=== PATIENT | female | born 1940 | race Caucasian/White ===

== ENCOUNTER 2023-05-05 15:23 | Emergency (ER) | payer MEDICARE, SELFPAY ==
--- NOTE | ~2023-05-05 | XR_ITS ---
EXAMINATION: PORTABLE CHEST 1 VIEW CLINICAL INFORMATION: Lower extremity swelling. COMPARISON: 10/13/2016. TECHNIQUE: Portable frontal view of the chest was obtained. FINDINGS: Lungs well-expanded with chronic appearing coarsened reticular markings. I do not appreciate any superimposed focal infiltrate, overt edema, pneumothorax, or effusion. Cardiac silhouette within normal limits for size. Dual-lead pacemaker is noted with lead tips overlying expected right atrium and right ventricle. TAVR stent is in place with vascular calcification seen in the aorta. Degenerative changes in the shoulders XR/XR chest 1V IMPRESSION: Chronic appearing and postoperative changes as described. I do not appreciate any acute superimposed process.
[2023-05-05 15:37] VITALS: BP 172/78; PULSE 81; O2SAT 98
[2023-05-05 16:00] VITALS: BP 134/80; PULSE 70; RESP 14; TEMP 36.7; O2SAT 97; BMI 22.9
--- NOTE | 2023-05-05 16:58 | ECG_ITS ---
Test Reason : BILATERAL LEG SWELLING Blood Pressure : / mmHG Vent. Rate : 066 BPM Atrial Rate : 066 BPM P-R Int : 194 ms QRS Dur : 094 ms QT Int : 478 ms P-R-T Axes : 070 -33 085 degrees QTc Int : 501 ms Normal sinus rhythm Left axis deviation Minimal voltage criteria for LVH, may be normal variant ( [place] product ) Septal infarct (cited on or before 13-OCT-2016) Abnormal ECG When compared with ECG of 13-OCT-2016 14:24, Premature ventricular complexes are no longer Present QT has lengthened Referred By: Cheng Aceves Electronically Signed By:SULMA RACHEL
--- NOTE | 2023-05-05 16:59 | ED_ITS ---
HPI - Extremity Problem General Chief complaint: Extremity Problem Stated complaint: WEAKNESS, EDEMA IN LEGS Time Seen by Provider: 05/05/23 16:46 Source: patient, family and EMS Mode of arrival: EMS Limitations: no limitations History of Present Illness HPI Narrative: 82-year-old female came in for evaluation of bilateral swelling of lower extremity notice since last night, patient is known to have CHF, patient was using Lasix but was taken off Lasix by her PCP about 3 months ago, patient otherwise declined chest pain, no SOB, no PND. Related Data Previous Rx's Medication Instructions Recorded furosemide 20 mg tablet (Lasix) 20 mg PO DAILY #10 tabs 05/05/23 potassium gluconate 500 mg (83 mg) 500 mg PO DAILY #10 tabs 05/05/23 tablet Allergies Allergy/AdvReac Type Severity Reaction Status Date / Time Penicillins [PCN] Allergy Mild RASH Verified 05/05/23 16:11 Sulfa (Sulfonamide Allergy Mild RASH Verified 05/05/23 16:11 Antibiotics) [SULFA (SULFONAMIDE ANTIBIOTICS)] codeine [CODEINE] AdvReac Mild NAUSEA & Verified 05/05/23 16:11 VOMITING Review of Systems 2 Review of Systems: All other systems are reviewed and are negative Constitutional: Reports as per HPI and Reports no additional constitutional complaints Eyes: Reports as per HPI and Reports no additional eye complaints Reports system reviewed and no additional complaints, except as documented Cardiovascular: Reports as per HPI and Reports no additional cardiovascular complaints Respiratory: Reports as per HPI and Reports no additional respiratory complaints Gastrointestinal: Reports as per HPI and Reports no additional gastrointestinal complaints Genitourinary: Reports no additional female genitourinary complaints Musculoskeletal: Reports no additional musculoskeletal complaints Skin/Breast: Reports system reviewed and no additional complaints, except as docu Psychiatric: Reports no additional psychiatric complaints Endocrine: Reports no additional endocrine complaints Hematologic/Lymphatic: Reports no additional hematologic/lymphatic complaints Allergic/Immunologic: Reports no additional allergic/immunologic complaints Reports system reviewed and no additional complaints, except as documented and Reports Abnormal speech present [facility] Social History Social History Smoked in Last 30 Days: No Advance Directives: No Advance Directives Information Provided: No Physical Exam 2 Vital Signs: Vital Signs: Last Vital Signs Temp 98.1 F 05/05/23 19:50 Pulse 63 05/05/23 19:50 Resp 17 05/05/23 19:50 BP 119/58 L 05/05/23 19:50 Pulse Ox 99 05/05/23 19:50 O2 Del Method Room Air 05/05/23 19:50 O2 Flow Rate 3 05/05/23 19:19 Oxygen Flow Rate 3 05/05/23 16:00 BMI result Body Mass Index 22.9 Vital signs have been reviewed and appear to be correct. Blood pressure elevated. Heart rate normal. Respiratory rate normal. Temperature normal. Oxygen saturation normal. Appearance: Alert. Oriented X3. No acute distress. Head: Normal external exam. Normocephalic. Atraumatic. No Wiley signs noted. No raccoon eyes noted Eyes: PERRLA. EOMI. Conjunctiva and sclera normal. Eyelids normal. ENT: TM's Normal. Pharynx normal. Uvula midline. Moist mucous membranes. No trismus noted. No drooling noted. No muffled voice noted. Neck: Normal inspection. Neck supple. FROM. No adenopathy. Thyroid Normal. No meningeal signs. No neck mass noted. CVS: Normal heart rate and rhythm. Heart sound normal. No murmurs noted. Pulses normal throughout. Respiratory: No respiratory distress. Painless inspiration. Breath sounds normal. No wheezes/rales/rhonchi noted. Chest nontender. No accessory muscle usage noted or decreased air movement noted. Abdomen: Soft and nontender. Bowel sounds normal in all 4 quadrants. No distention noted. No organomegaly noted. No visible injury noted. Back: No CVA tenderness. Full range of motion noted. Skin: Skin warm and dry. Normal skin color. Normal skin turgor. No rashes/lesions/lacerations noted. Extremities: +2 lower extremity edema. Extremities exhibit normal range of motion. Extremities nontender. Neuro: Oriented X 3. Cranial nerve exam: II-XII are grossly intact No motor deficit. No sensory deficit. Reflexes normal. Course Reevaluation(s) Reevaluation #1: Bilateral leg edema patient was on Lasix that was discontinued by her PCP likely because of hypokalemia, will discharge the patient on Lasix and supplemental potassium. Time: 21:58 Medications Administered Discontinued Medications Generic Name Dose Route Start Last Admin Trade Name Freq PRN Reason Stop Dose Admin Furosemide 20 mg 05/05/23 16:57 05/05/23 17:42 Furosemide 20 Mg/2 Ml Vial IVPUSH 05/05/23 16:58 20 mg ONCE ONE Administration Protocol Potassium Chloride 10 meq in 100 mls @ 100 mls/hr 05/05/23 18:23 05/05/23 20:26 Potassium Chloride/H20 IV 05/05/23 19:22 Infused ONCE ONE Infusion Potassium Chloride 40 meq 05/05/23 18:23 05/05/23 19:17 Potassium Chloride Packet 20 Meq Packet PO 05/05/23 18:24 40 meq ONCE ONE Administration Medical Decision Making Differential Diagnosis Differential Diagnoses: The differential diagnosis associated with the presentation includes (Electrolyte abnormality, CHF, severe anemia, dehydration, UTI.) Admission/Observation Consideration of admission/observation: Escalation of care including admission/observation considered Lab Data MDM Lab Attestation statement: I reviewed the patient's lab results. 05/05/23 17:48 05/05/23 17:48 Labs: Lab Results 05/05/23 Range/Units 17:48 WBC 9.6 (4.8-10.8) X10*3/uL RBC 4.14 L (4.20-5.50) X10*6/uL Hgb 11.6 L (12.0-16.0) g/dl Hct 35.5 L (37.0-47.0) % MCV 85.7 (80.0-98.0) fL MCH 28.0 (27.0-33.0) pg MCHC 32.7 (31.0-35.0) g/dl RDW 13.6 (11.0-16.0) % Plt Count 134 L (160-400) X10*3/uL MPV 9.6 (9.4-12.3) fL Immature Gran % (Auto) 0.4 (0.0-0.4) % Neut % (Auto) 71.3 (45-73) % Lymph % (Auto) 19.4 L (20-40) % [place] % (Auto) 7.3 (2-11) % Eos % (Auto) 1.0 (0-4) % Baso % (Auto) 0.6 (0-2) % Lymph # (Auto) 1.9 (1.2-4.9) X10*3/uL [place] # (Auto) 0.7 (0.1-1.2) X10*3/uL Eos # (Auto) 0.1 (0.0-0.4) X10*3/uL Baso # (Auto) 0.1 (0.0-0.2) X10*3/uL Abs Immat Gran (auto) 0.04 H (0.00-0.03) X10*3/uL Absolute Neuts (auto) 6.8 (2.0-8.3) x10*3/uL Absolute Nucleated RBC 0.000 (0.0-0.012) X10*3/uL Nucleated RBC % (auto) 0.0 (0.0-0.2) /100WBC Sodium 141 (135-145) mmol/L Potassium 2.7 L (3.3-5.1) mmol/L Chloride 97 (96-108) mmol/L Carbon Dioxide 31 H (22-29) mmol/L Anion Gap 16 (12-20) BUN 20 H (9-16) mg/dL Creatinine 1.13 (0.5-1.4) mg/dL Estim Creat Clear Calc 31.4 Estimated GFR 46 Random Glucose 136 H (60-115) mg/dL Calcium 9.2 (8.4-10.2) mg/dL Total Bilirubin 1.0 (0.0-1.0) mg/dL Direct Bilirubin 0.3 (0.0-0.5) mg/dL AST 32 H (5-31) U/L ALT 18 (0-31) U/L Alkaline Phosphatase 74 (39-117) U/L Troponin I High Sens 7.9 (<3.5-17.0) ng/L B-Natriuretic Peptide 81 (<100) pg/mL Total Protein 7.1 (6.5-8.0) g/dL Albumin 4.0 (3.5-5.0) g/dL Lipase 32 (8-78) U/L Urine Color Yellow Urine Appearance Clear Urine pH 7.0 (5.0-9.0) Ur Specific [place] 1.010 (1.005-1.025) Urine Protein Negative (Neg-Trace) mg/dL Urine Glucose (UA) Negative (Negative) mg/dL Urine Ketones Negative (Negative) mg/dL Urine Blood Small (1+) H (Negative) Urine Nitrite Negative (Negative) Ur Leukocyte Esterase Trace H (Negative) Urine RBC 11-20 H (0-2) /HPF Urine WBC 0-5 (0-5) /HPF Ur Squamous Epith Cells 0-2 (0-2) /HPF Calcium Oxalate Crystal Present Other Crystals Present Urine Bacteria None Seen (None Seen) Hyaline Casts 0-2 (0-2) /LPF Independent Interpretation I performed an independent interpretation of an: Plain X-Ray (Chest:Chronic appearing and postoperative changes as described. I do not appreciate any acute superimposed process. ) Radiology Impression Discussion of test interpretation with radiology: I have reviewed the radiologist's reading. Discharge Plan Discharge Clinical Impression: Lower extremity edema, Hypokalemia Patient Disposition: Home, Self-Care Instructions: Leg Edema (ED) Additional Instructions: Leg elevation, take the water pills as prescribed, make sure to eat 1 banana a day and take the potassium pills. Follow-up with your PCP. Prescriptions: New furosemide [Lasix] 20 mg tablet 20 mg PO DAILY Qty: 10 0RF potassium gluconate 500 mg (83 mg) tablet 500 mg PO DAILY Qty: 10 0RF
[2023-05-05] MEDS: Furosemide 20 MG/2 ML VIAL IVPUSH (17:42)
[2023-05-05 17:53] LABS: MANUAL DIFF FLAG NO
[2023-05-05 17:54] LABS: Basophils Absolute Auto 0.1 X10*3/uL (0.0-0.2); Basophils Percent Auto 0.6 % (0-2); Eosinophils Absolute Auto 0.1 X10*3/uL (0.0-0.4); Hematocrit 35.5 % (37.0-47.0); Hemoglobin 11.6 g/dl (12.0-16.0); Imm Gran Abs Auto 0.04 X10*3/uL (0.00-0.03); Imm Gran Pct Auto 0.4 % (0.0-0.4); Lymphocytes Absolute Auto 1.9 X10*3/uL (1.2-4.9); Lymphocytes Percent Auto 19.4 % (20-40); Mean Corpuscular HGB Conc 32.7 g/dl (31.0-35.0); Mean Corpuscular Volume 85.7 fL (80.0-98.0); Mean Platelet Volume 9.6 fL (9.4-12.3); Monocytes Absolute Auto 0.7 X10*3/uL (0.1-1.2); Monocytes Percent Auto 7.3 % (2-11); Neutrophils Absolute Auto 6.8 x10*3/uL (2.0-8.3); Neutrophils Percent Auto 71.3 % (45-73); Platelet Count 134 X10*3/uL (160-400); Red Blood Count 4.14 X10*6/uL (4.20-5.50); Red Cell Distribution Width 13.6 % (11.0-16.0); White Blood Count 9.6 X10*3/uL (4.8-10.8)
[2023-05-05 17:56] LABS: Appearance Urine Clear; Color Urine Yellow; Glucose Urine UA Negative (Negative); Leukocyte Esterase Urine Trace (Negative); Nitrite Urine Negative (Negative); UMIC TRIGGER UACC YES; Urine Blood Small (1+) (Negative); Urine Ketones Negative (Negative); Urine Protein Negative (Neg-Trace)
[2023-05-05 18:09] LABS: Bacteria Urine None Seen (None Seen); Calcium Oxalate Crystals Urine Present; Hyaline Casts Urine 0-2 /LPF (0-2); Other Crystals Urine Present; Squamous Epithelial Cell Urine 0-2 /HPF (0-2); WBC Urine 0-5 /HPF (0-5)
[2023-05-05 18:10] LABS: Alanine Aminotransferase 18 U/L (0-31); Alkaline Phosphatase 74 U/L (39-117); Anion Gap 16 (12-20); Aspartate Amino Transferase 32 U/L (5-31); Bilirubin Direct 0.3 mg/dL (0.0-0.5); Blood Urea Nitrogen 20 mg/dL (9-16); Calcium 9.2 mg/dL (8.4-10.2); Carbon Dioxide 31 mmol/L (22-29); Chloride 97 mmol/L (96-108); Creatinine Clr Calc Pharmacy 31.4; Estimated Glomerular Filt Rate 46; Glucose Random 136 mg/dL (60-115); Lipase 32 U/L (8-78); Potassium 2.7 mmol/L (3.3-5.1); Sodium 141 mmol/L (135-145); Total Protein 7.1 g/dL (6.5-8.0)
[2023-05-05 18:13] LABS: B Type Natriuretic Peptide 81 pg/mL (<100)
[2023-05-05 18:17] LABS: Troponin-I High Sensitivity 7.9 ng/L (<3.5-17.0)
--- NOTE | 2023-05-05 19:16 | PC.NURSE ---
ASSUMED CARE OF PT
[2023-05-05] MEDS: Potassium Chloride/H20 10 MEQ/100 ML PIGGYBACK 100 MEQ IV (19:17)
[2023-05-05] MEDS: Potassium Chloride Packet 20 MEQ PACKET 40 MEQ PO (19:17)
[2023-05-05 19:19] VITALS: BP 125/69; PULSE 67; RESP 19; TEMP 36.6; O2SAT 96
[2023-05-05 19:50] VITALS: BP 119/58; PULSE 63; RESP 17; TEMP 36.7; O2SAT 99
--- NOTE | 2023-05-05 19:53 | PC.NURSE ---
daybook nurse Stephanie for contact- [phone]
--- NOTE | 2023-05-05 22:04 | PC.NURSE ---
nurse to nurse report given to shyla alcantar [facility]
== END 2023-05-06 00:42 | disposition home or self-care (01) ==
PROVIDERS: Emergency Provider Emergency Medicine
DX: R60.0 Localized edema (principal); R94.31 Abnormal electrocardiogram [ECG] [EKG]; R06.02 Shortness of breath; Z79.899 Other long term (current) drug therapy
CPT/HCPCS: 36415; 71045; 80048; 80076; 81001; 83690; 83880; 84484; 85025; 93005; 96365; 96375; 99284; 99285; J1940; J3480

== ENCOUNTER → 2023-05-05 16:58 | Outpatient (BNV) | payer MEDICARE, SELFPAY | PROVIDERS: Emergency Provider Emergency Medicine; Visit Provider Internal Medicine | DX: R94.31 Abnormal electrocardiogram [ECG] [EKG] (principal) | CPT/HCPCS: 93010 ==

== ENCOUNTER 2023-08-19 19:08 | Emergency (ER) | payer MEDICARE, SELFPAY ==
[2023-08-19 19:14] VITALS: BP 170/85; PULSE 91; O2SAT 96
--- NOTE | 2023-08-19 19:41 | ECG_ITS ---
Test Reason : PACEMAKER/MISSED FIRED Blood Pressure : / mmHG Vent. Rate : 074 BPM Atrial Rate : 074 BPM P-R Int : 174 ms QRS Dur : 096 ms QT Int : 430 ms P-R-T Axes : 011 -42 075 degrees QTc Int : 477 ms Normal sinus rhythm Left axis deviation Minimal voltage criteria for LVH, may be normal variant ( [place] product ) Abnormal ECG When compared with ECG of 05-MAY-2023 17:37, No significant change was found Referred By: Generic ED Physician Electronically Signed By:SULMA RACHEL
[2023-08-19 19:45] VITALS: BP 146/67; PULSE 75; RESP 15; TEMP 36.4; O2SAT 92; BMI 26.9
[2023-08-19 19:51] VITALS: BP 146/50; PULSE 74; RESP 14; TEMP 36.4; O2SAT 92
[2023-08-19 19:56] LABS: MANUAL DIFF FLAG NO
[2023-08-19 19:59] LABS: Basophils Absolute Auto 0.1 X10*3/uL (0.0-0.2); Basophils Percent Auto 0.6 % (0-2); Eosinophils Absolute Auto 0.1 X10*3/uL (0.0-0.4); Eosinophils Percent Auto 1.3 % (0-4); Hematocrit 39.7 % (37.0-47.0); Hemoglobin 13.1 g/dl (12.0-16.0); Imm Gran Abs Auto 0.02 X10*3/uL (0.00-0.03); Imm Gran Pct Auto 0.2 % (0.0-0.4); Lymphocytes Absolute Auto 2.5 X10*3/uL (1.2-4.9); Lymphocytes Percent Auto 27.2 % (20-40); Monocytes Absolute Auto 0.8 X10*3/uL (0.1-1.2); Monocytes Percent Auto 8.4 % (2-11); Neutrophils Absolute Auto 5.6 x10*3/uL (2.0-8.3); Neutrophils Percent Auto 62.3 % (45-73); Platelet Count 144 X10*3/uL (160-400); Red Blood Count 4.51 X10*6/uL (4.20-5.50); Red Cell Distribution Width 13.1 % (11.0-16.0)
[2023-08-19 20:11] LABS: Alanine Aminotransferase 11 U/L (0-31); Albumin Level 4.2 g/dL (3.5-5.0); Alkaline Phosphatase 67 U/L (39-117); Anion Gap 16 (12-20); Aspartate Amino Transferase 23 U/L (5-31); Bilirubin Total 1.3 mg/dL (0.0-1.0); Blood Urea Nitrogen 27 mg/dL (9-16); Calcium 9.5 mg/dL (8.4-10.2); Carbon Dioxide 29 mmol/L (22-29); Chloride 97 mmol/L (96-108); Creatinine Clr Calc Pharmacy 35.9; Estimated Glomerular Filt Rate 48; Glucose Random 135 mg/dL (60-115); Potassium 3.4 mmol/L (3.3-5.1); Sodium 139 mmol/L (135-145); Total Protein 7.5 g/dL (6.5-8.0)
--- OUTSIDE RECORDS SUMMARY | 2023-08-19 20:17 | XMS_ITS | Continuity of Care Document ---
Author Organization [facility] [place] Address [address] [place] [id number]- Care Team Providers Care After School Tutor Name Role Phone Keke Nguyen MD Primary Care Physician [phone] [place] [facility] [place](s[place] 04/28/20 - 05/28/20 [facility] [address] [place] [id number] Attending Physician: AdmtrJessa Admitting Physician: Admtr, Ar8 Referring Physician: Admtr, Ar8 Allergies, Adverse Reactions, Alerts Substance Reaction Severity Status codeine hives Active penicillin hives Allergy to penicillin Aspirin allergy Codeine allergy Allergy to sulfa drugs Active aspirin stomach pain Active sulfa drugs 1 migraines Active 1Patient tolerates furosemide Medications acetaminophen 325 mg oral tablet 650 mg, By Mouth, Every 6 hours, may take OTC, Refills 0, Maintenance, 03/09/20 9:17:00 EST Start Date: 03/09/20 Status: Ordered atorvastatin 40 mg oral tablet 1 tablet = 40 mg, By Mouth, Daily, 0 Refills, Maintenance, 02/02/20 8:09:00 EDT Start Date: 02/02/20 Status: Ordered furosemide 40 mg oral tablet 40 mg, 1, tablet, By Mouth, Daily, # 30 tablet, Refills 0, Tot. Refills 0, Maintenance, 03/15/20 14:35:00 EST, Route to Pharmacy Electronically, [facility]/pharmacy #[id number], 158, cm, 03/15/20 13:59:00 EST, Height, 75, kg, 03/11/20 0:01:00 EST, Dry Weight Start Date: 03/15/20 Status: Ordered Levoxyl 0.088 mg oral tablet 1 tablet = 88 mcg, By Mouth, Daily, 1 1/2 tab on Sunday, 0 Refills, Maintenance, 02/02/20 8:09:00 EDT Start Date: 02/02/20 Status: Ordered metoprolol 25 mg oral tablet 25 mg, 1, tablet, By Mouth, 3 times a day, Use Metoprolol Tartrate, # 90 tablet, Refills 0, Tot. Refills 0, Maintenance, 05/07/20 17:36:00 EST, Route to Pharmacy Electronically, [facility]/pharmacy #[id number], Partial fill upon patient request if the prescription... Start Date: 05/07/20 Stop Date: 06/06/20 Status: Ordered MiraLax Powder 1 pack/packet = 17 Gm, By Mouth, Daily, may take OTC prn, 0 Refills, Maintenance, 03/09/20 9:19:00 EST, Powder Start Date: 03/09/20 Status: Ordered Mirapex 0.25 mg oral tablet 1 tablet = 0.25 mg, By Mouth, Daily at bedtime, 0 Refills Start Date: 04/05/09 Status: Ordered Plavix 75 mg oral tablet 75 mg, 1, tablet, By Mouth, Daily, # 30 tablet, Refills 0, Maintenance, 05/06/20 7:56:00 EST, Partial fill upon patient request if the prescription is for a schedule II opioid drug. Start Date: 05/06/20 Status: Ordered Symbicort 80mcg/4.5mcg Inhaler 2 puffs, Inhalation, 2 times a day, 0 Refills Start Date: 04/05/09 Stop Date: 05/04/09 Status: Ordered Ventolin HFA 108 mcg/inh inhalation aerosol with adapter 1 puffs, Inhalation, 4 times a day, PRN for wheezing, # 18 Gm, 0 Refills, Maintenance, 03/08/20 6:50:00 EST, Aerosol Start Date: 03/08/20 Status: Ordered Vitamin C 500 mg oral tablet 1 tablet = 500 mg, By Mouth, Daily, 0 Refills, Maintenance, 02/02/20 8:11:00 EDT Start Date: 02/02/20 Status: Ordered Vitamin D3 1000 intl units oral capsule By Mouth, Daily, 0 Refills, Maintenance, 02/02/20 8:11:00 EDT Start Date: 02/02/20 Status: Ordered
--- OUTSIDE RECORDS SUMMARY | 2023-08-19 20:17 | XMS_ITS | Continuity of Care Document ---
Author Organization [facility] Address [address] [place] [address]- Care Team Providers Care Client Solutions Specialist Name Role Phone Keke [place] MD Primary Care Physician Encounter [facility] [place] Date(s): 08/09/20 - 09/08/20 [facility] [address] [place] [address]- Allergies, Adverse Reactions, Alerts Substance Reaction Severity Status codeine hives Active penicillin hives Allergy to penicillin Aspirin allergy Codeine allergy Allergy to sulfa drugs Active aspirin stomach pain Active sulfa drugs 1 migraines Active Mushrooms hives Active 1Patient tolerates furosemide Immunizations Given and Recorded Vaccine Date Status Refusal Reason pneumococcal 13-valent vaccine 1 06/03/20 Given influenza virus vaccine, inactivated 06/03/20 Give n 1Early/Late Reason: Early/Late Reason: Med Not Available Medications acetaminophen 325 mg oral tablet 650 mg, By Mouth, Every 6 hours, may take OTC, Refills 0, Maintenance, 03/09/20 9:17:00 EST Start Date: 03/09/20 Status: Ordered amLODIPine 2.5 mg oral tablet 5 mg, 2, tablet, By Mouth, Daily, # 60 tablet, Refills 0, Tot. Refills 0, Maintenance, 06/04/20 13:45:00 EST, Route to Pharmacy Electronically, [facility]/pharmacy #[id number], Partial fill upon patient request if the prescription is for a schedule II opioid drug.... Start Date: 06/04/20 Status: Ordered atorvastatin 40 mg oral tablet 1 tablet = 40 mg, By Mouth, Daily, 0 Refills, Maintenance, 02/02/20 8:09:00 EDT Start Date: 02/02/20 Status: Ordered furosemide 20 mg oral tablet 60 mg, 3, tablet, By Mouth, Daily, # 90 tablet, Refills 0, Tot. Refills 0, Maintenance, 06/04/20 13:44:00 EST, Route to Pharmacy Electronically, [facility]/pharmacy #[id number], Partial fill upon patient request if the prescription is for a schedule II opioid drug... Start Date: 06/04/20 Status: Ordered Levoxyl 0.088 mg oral tablet [...] 05/07/20 17:36:00 EST, Route to Pharmacy Electronically, [facility]/pharmacy #[id number], Partial fill upon patient request if the [...]
--- OUTSIDE RECORDS SUMMARY | 2023-08-19 20:17 | XMS_ITS | Continuity of Care Document ---
Author Organization [facility] Address [address] [place] [address]- Care Team Providers Care Director Of Customer Service Name Role Phone Keke Nguyen MD Primary Care Physician [phone] [place] [facility] [place](s): 02/02/20 - 04/21/20 [facility] [address] [place] [address]- Attending Physician: Nori Silva NP Admitting Physician: Nori Silva NP Referring Physician: Nori Silva NP Allergies, Adverse Reactions, Alerts Substance Reaction Severity Status codeine Active penicillin Allergy to penicilli n Aspirin allergy Codeine allergy Allergy to sulfa drugs Active aspirin Active sulfa drugs 1 Active 1Patient tolerates furosemide Medications acetaminophen 325 mg oral tablet 650 mg, By Mouth, Every 6 hours, may take OTC, Refills 0, Maintenance, 03/09/20 9:17:00 EST Start Date: 03/09/20 Status: Ordered amLODIPine 2.5 mg oral tablet 2.5 mg, 1, tablet, By Mouth, Daily, Refills 0, Maintenance, 02/02/20 8:12:00 EDT Start Date: 02/02/20 Status: Ordered atorvastatin 40 mg oral tablet 1 tablet = 40 mg, By Mouth, Daily, 0 Refills, Maintenance, 02/02/20 8:09:00 EDT Start Date: 02/02/20 Status: Ordered Colace Capsule 100 mg, 1, capsule, By Mouth, 2 times a day, hold for loose stools, Refills 0, Maintenance, 03/09/20 9:18:00 EST Start Date: 03/09/20 Status: Ordered furosemide 40 mg oral tablet 40 mg, 1, tablet, By Mouth, Daily, # 30 tablet, Refills 0, Tot. Refills 0, Maintenance, 03/15/20 14:35:00 EST, Route to Pharmacy Electronically, [facility]/pharmacy #[id number], 158, cm, 03/15/20 13:59:00 EST, Height, 75, kg, 03/11/20 0:01:00 EST, Dry Weight Start Date: 03/15/20 Status: Ordered Levoxyl 0.088 mg oral tablet 1 tablet = 88 mcg, By Mouth, Daily, 1 1/2 tab on Sunday, 0 Refills, Maintenance, 02/02/20 8:09:00 EDT Start Date: 02/02/20 Status: Ordered Lisinopril = 40 mg, By Mouth, Daily, 0 Refills, Maintenance, 02/02/20 8:09:00 EDT Start Date: 02/02/20 Status: Ordered Maalox Plus Liquid 30 mL, By Mouth, Every 4 hours, PRN Other, Heartburn, 0 Refills, Maintenance, 03/09/20 9:18:00 EST,Suspension Start Date: 03/09/20 Status: Ordered Milk of Magnesia Liquid 30 mL, By Mouth, Daily, PRN Constipation, 0 Refills, Maintenance, 03/09/20 9:19:00 EST, Suspension Start Date: 03/09/20 Status: Ordered MiraLax Powder 1 pack/packet = 17 Gm, By Mouth, Daily, may take OTC prn, 0 Refills, Maintenance, 03/09/20 9:19:00 EST, Powder Start Date: 03/09/20 Status: Ordered Mirapex 0.25 mg oral tablet 1 tablet = 0.25 mg, By Mouth, Daily at bedtime, 0 Refills Start Date: 04/05/09 Status: Ordered pantoprazole 40 mg oral delayed release tablet = 40 mg, By Mouth, Daily, # 30 tablet, 0 Refills, Maintenance, 03/09/20 9:14:00 EST, EC Tablet, 157.4, cm, 03/09/20 6:16:00 EST, Height, 76.4, kg, 03/08/20 6:50:00 EST, Dry Weight Start Date: 03/09/20 Stop Date: 04/08/20 Status: Ordered senna 187 mg oral tablet 1 tablet = 8.6 mg, By Mouth, Daily at bedtime, may take OTC prn, 0 Refills, Maintenance, 03/09/20 9:19:00 EST, Tablet Start Date: 03/09/20 Status: Ordered Symbicort 80mcg/4.5mcg Inhaler 2 puffs, [...] 8:11:00 EDT Start Date: 02/02/20 Status: Ordered warfarin 5 mg oral tablet 1 tablet = 5 mg, By Mouth, Daily, # 30 tablet, 0 Refills, Maintenance, 03/15/20 14:35:00 EST, Tablet, [facility]/pharmacy #[id number], 158, cm, 03/15/20 13:59:00 EST, Height, 75, kg, 03/11/20 0:01:00 EST, Dry Weight Start Date: 03/15/20 Status: Ordered
--- OUTSIDE RECORDS SUMMARY | 2023-08-19 20:17 | XMS_ITS | Continuity of Care Document ---
Author Organization [facility] ter Address [address] [place] [address]- Care Team Providers Care Contact Clerk Name Role Phone Keke Nguyen MD Primary Care Physician Encounter [facility] [place] Date(s): 03/10/20 - 03/15/[address] [address]- Encounter Diagnosis Elevated troponin(Final) - 03/10/20 Pulmonary edema(Final) - 03/10/20 Discharge Disposition: A-Transfer A/Home Health Attending Physician: Feroz Taylor MD Admitting Physician: Kishore Avina MD Referring Physician: Not on Staff, Referring MD Allergies, Adverse Reactions, Alerts Substance Reaction Severity Status codeine Active penicillin Allergy to penicilli n Aspirin allergy Codeine allergy Allergy to sulfa drugs Active sulfa drugs 1 Active aspirin Active 1Patient tolerates furosemide Medications acetaminophen 325 [...] 9:18:00 EST Start Date: 03/09/20 Status: Ordered enoxaparin 40 mg/0.4 mL injectable solution 0.4 mL = 40 mg, Subcutaneous Injection, Daily, for 5 days, # 2 mL, 0 Refills, Acute 03/20/20 15:41:00 EST, 03/15/20 15:41:00 EST, Solution, [facility]/pharmacy #[id number], 158, cm, 03/15/20 13:59:00 EST, Height,75, kg, 03/11/20 0:01:00 EST, Dry Weight Start Date: 03/15/20 Stop Date: 03/20/20 Status: Ordered furosemide 40 mg oral tablet 40 mg, 1, tablet, By Mouth, Daily, # 30 tablet, Refills 0, Tot. Refills 0, Maintenance, 03/15/20 14:35:00 EST, Route to Pharmacy Electronically, [facility]/pharmacy #[id number], 158, cm, 03/15/20 13:59:00 EST, Height, [...] Date: 04/05/09 Stop Date: 05/04/09 Status: Ordered traMADol 50 mg oral tablet See Instructions, PRN Pain , Mild, Take 1-2 tablets By Mouth Every 6 hours as needed, # 60 tablet, 0 Refills, Acute 03/16/20 9:14:00 EST, 03/09/20 9:13:00 EST, Tablet, [facility], 157.4, cm, 03/09/20 6:16:00 EST, Height, 76.4, kg, ... 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 Clinical Question(s): CHF COMPARISON: None. FINDINGS: LINES AND TUBES: None. LUNGS AND PLEURA: Lung volumes are diminished with bronchovascular crowding. No focal airspace opacities are identified. There is mild basilar atelectasis left greater than right. No pleural effusion. No pneumothorax. HEART, MEDIASTINUM AND DARYA: Heart is normal in size. Normal mediastinal and hilar contour. BONES AND SOFT TISSUES: No acute abnormality. IMPRESSION: Diminished lung volumes with bronchovascular crowding versus mild pulmonary vascular congestion. WSN: [id number] Ordering Physician: Jose D Kennedy Dictated By: Jersey Tatum MD Dictated Date/Time: 03/10/20 12:27 p Reviewed By: Jersey Tatum MD Signed By: Jersey Tatum MD Signed Date/Time: 03/10/20 12:27 pm Transcribed By: DAWNA Transcribed Date/Time: 03/10/20 12:26 pm Vital Signs Most recent to oldest [Reference Range]: 1 2 3 Height 158 cm (03/15/20 1:59 PM) 158 cm (03/15/20 8:28 AM) 158 cm (03/15/20 1:28 AM) Weight 74.7 kg (03/14/20 6:46 AM) 75.4 kg (03/13/20 6:13 AM) 77.2 kg (03/12/20 7:07 AM) Oxygen Saturation [94-100 %] 100 % (03/15/20 1:59 PM) 96 % (03/15/20 8:28 AM) 96 % (03/15/20 1:28 AM) Pulse Rate [55-90 bpm] 87 bpm (03/15/20 1:59 PM) 77 bpm (03/15/20 8:28 AM) 82 bpm (03/15/20 1:28 AM) Body Mass Index [18.5-24.99] 31.24 *>HHI* (03/11/20 12:01 AM) Blood Pressure [90-138/55-84 mm Hg] 111/44mm Hg (03/15/20 1:59 PM) 115/43mm Hg (03/15/20 10:29 AM) 115/43mm Hg (03/15/20 10:29 AM) Respiratory Rate [16-30 br/min] 16 br/min (03/15/20 1:59 PM) 16 br/min (03/15/20 8:28 AM) 18 br/min (03/15/20 1:28 AM) Temperature [96.8-100.4 DegF] 98.1 DegF (03/15/20 1:59 PM) 97.6 DegF (03/15/20 8:28 AM) 97.3 DegF (03/15/20 1: AM) Liters per Minute 2 L/min (03/15/20 1:28 AM) 2 L/min (03/14/20 8:02 PM) 2 L/min (03/14/20 1:59 PM) Mode of Delivery (Oxygen) Room air (03/15/20 1:59 PM) Room air (03/15/20 8:28 AM) Nasal cannula (03/15/20 1:28 AM) Blood pressure sites Arm, left (03/15/20 1:59 PM) Arm, left (03/15/20 8:28 AM) Arm, left (03/15/20 1:28 AM) Temperature Route Temporal (03/15/20 1:59 PM) Temporal (03/15/20 8:28 AM) Temporal (03/15/20 1:28 AM) Dry Weight 75 kg (03/11/20 12:01 AM) Weight Obtained Via Bed scale (03/11/20 6:38 AM) Bed scale (03/11/20 12:07 AM) Bed scale (03/11/20 12:01 AM) Dry Weight Obtained Via Patient/family s tated (03/11/20 12:01 AM) Social History Social History Type Response Sex Female
--- OUTSIDE RECORDS SUMMARY | 2023-08-19 20:17 | XMS_ITS | Continuity of Care Document ---
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 And Booking Machine Operator Name Role Phone Keke Nguyen MD Primary Care Physician Encounter [facility] [place] Date(s): 02/02/20 - 02/09/20 [facility] [address] [place] [address]- [facility] Attending Physician: Janeen BLACKWELL, Bryan Redman Admitting Physician: Janeen BLACKWELL, Bryan Redman Referring Physician: Keke Nguyen MD Allergies, Adverse Reactions, Alerts Substance Reaction Severity Status codeine Active penicillin Allergy to penicilli n Aspirin allergy Codeine allergy Allergy to sulfa drugs Active aspirin Active sulfa drugs Active Medications amLODIPine 2.5 mg oral tablet 2.5 mg, 1, tablet, By Mouth, Daily, Refills 0, Maintenance, 02/02/20 8:12:00 EDT Start Date: 02/02/20 Status: Ordered atorvastatin 40 mg oral tablet 1 tablet = 40 mg, By Mouth, Daily, 0 Refills, Maintenance, 02/02/20 8:09:00 EDT Start Date: 02/02/20 Status: Ordered clopidogrel 75 mg oral tablet 75 mg, 1, tablet, By Mouth, Daily, Refills 0, Maintenance, 02/02/20 8:10:00 EDT Start Date: 02/02/20 Status: Ordered Levoxyl 0.088 mg oral tablet 1 tablet = 88 mcg, By Mouth, Daily, 1 1/2 tab on Sunday, 0 Refills, Maintenance, 02/02/20 8:09:00 EDT Start Date: 02/02/20 Status: Ordered Lisinopril = 40 mg, By Mouth, Daily, 0 Refills, Maintenance, 02/02/20 8:09:00 EDT Start Date: 02/02/20 Status: Ordered Mirapex 0.25 mg oral tablet 1 tablet = 0.25 mg, By Mouth, Daily at bedtime, 0 Refills Start Date: 04/05/09 Status: Ordered Symbicort 80mcg/4.5mcg Inhaler 2 puffs, Inhalation, 2 times a day, 0 Refills Start Date: 04/05/09 Stop Date: 05/04/09 Status: Ordered Vitamin C 500 mg oral tablet 1 tablet = 500 mg, By Mouth, Daily, 0 Refills, Maintenance, 02/02/20 8:11:00 EDT Start Date: 02/02/20 Status: Ordered Vitamin D3 1000 intl units oral capsule By Mouth, Daily, 0 Refills, Maintenance, 02/02/20 8:11:00 EDT Start Date: 02/02/20 Status: Ordered vitamin E 400 iu oral capsule 1 capsule = 400 International_Units, By Mouth, Daily, 0 Refills, Maintenance, 02/02/20 8:12:00 EDT Start Date: 02/02/20 Status: Ordered Vital Signs Most recent to oldest [Reference Range]: 1 Height 157.48 cm (02/02/20 8:07 AM) Weight 76.66 kg (02/02/20 8:07 AM) Oxygen Saturation [94-100 %] 98 % (02/02/20 8:07 AM) Pulse Rate [55-90 bpm] 74 bpm (02/02/20 8:07 AM) Body Mass Index [18.5-24.99] 30.91 *>HHI* (02/02/20 8:07 AM) Blood Pressure [90-138/55-84 mm Hg] 130/ 70mm Hg (02/02/20 8:07 AM) Blood pressure sites Arm, left (02/02/20 8:07 AM) Weight Obtained Via Patient/family state d (02/02/20 8:07 AM) Social History Social History Type Response Sex Female
--- OUTSIDE RECORDS SUMMARY | 2023-08-19 20:17 | XMS_ITS | Continuity of Care Document ---
Author Organization [facility] ter Address [address] [place] [address]- Care Team Providers Care Granite Sandblaster Apprentice Name Role Phone Keke Nguyen MD Primary Care Physician Encounter [facility] Date(s): 05/06/20 - 05/08/[address] [address]- Encounter Diagnosis Aortic stenosis, severe(Final) - 05/07/20 Discharge Disposition: A-D/C Home Attending Physician: Khang Ayoub MD Admitting Physician: Khang Ayoub MD Referring Physician: Joseph Bhatia MD Allergies, Adverse Reactions, Alerts Substance Reaction [...] 8:09:00 EDT Start Date: 02/02/20 Status: Ordered doxycycline monohydrate 100 mg oral capsule 1 capsule = 100 mg, By Mouth, Every 12 hours, for 5 days, PPM prophylaxis, # 10 capsule, 0 Refills,Acute 05/12/20 11:01:00 EST, 05/07/20 11:01:00 EST, [facility], [id number], Partial fill upon patient request if the prescription is for a schedul... Start Date: 05/07/20 Stop Date: 05/12/20 Status: Ordered furosemide 40 mg oral tablet 40 mg, 1, tablet, By Mouth, Daily, # 30 tablet, Refills 0, Tot. Refills 0, Maintenance, 03/15/20 14:35:00 EST, Route to Pharmacy Electronically, [facility]/pharmacy #[id number], 158, cm, 03/15/20 13:59:00 EST, [...] 05/07/20 17:36:00 EST, Route to Pharmacy Electronically, [facility]/pharmacy #[id number], Partial fill upon patient [...] 8:11:00 EDT Start Date: 02/02/20 Status: Ordered Results Radiology Reports * Exam Date Time Procedure Performing Provider Status 05/07/20 5:55 AM Chest 2 Views Frontal and Lat Wilma Wetzel; Auth (Verified) Notes: (Chest 2 Views Frontal and Lat) Reason For Exam: Postop RESULT: Chest 2 Views Frontal and Lat Examination: Chest performed on 05/07/2020. History: Line placement. Findings: Frontal and lateral views of the chest are compared to a prior study dated 05/06/2020. Pacer and aortic valve replacement are redemonstrated. The cardiac and mediastinal silhouettes are within normal limits. The lungs are clear. The osseous and soft tissue structures are unremarkable. Impression: There is no acute cardiopulmonary disease. WSN: [id number] Ordering Physician: Kaylynn Olsen Dictated By: Delisa Lawson MD Dictated Date/Time: 05/07/20 10:31 a Reviewed By: Delisa Lawson MD Signed By: Delisa Lawson MD Signed Date/Time: 05/07/20 10:31 am Transcribed By: DAWNA Transcribed Date/Time: 05/07/20 10:31 am * Exam Date Time Procedure Performing Provider Status 05/06/20 8:07 PM Chest Portable EkGlory jimenez; Auth (Verified) Notes: (Chest Portable) Reason For Exam: r/o pneumo after ppm;Line Placement RESULT: Chest Portable AP portable chest, INDICATION: Reason: Line Placement; r o pneumo after ppm; Clinical Question(s): Pneumothorax COMPARISON: Plain film of the chest from earlier today, 11:04 AM FINDINGS: LINES AND TUBES: Interval placement of a Dual-lead pacemaker. Status post TAVR. LUNGS AND PLEURA AND MEDIASTINUM: There is no pneumothorax. Small-sized left pleural effusion. Heart size is within normal limits. No focal infiltrate. Crowded lung markings at the lung base. IMPRESSION: No pneumothorax. Small-sized left pleural effusion. WSN: [id number] Ordering Physician: Kaylynn Olsen Dictated By: Stacy Roman MD Dictated Date/Time: 05/06/20 8:20 pm Reviewed By: Stacy Roman MD Signed By: Stacy Roman MD Signed Date/Time: 05/06/20 8:20 pm Transcribed By: DAWNA Transcribed Date/Time: 05/06/20 8:17 pm * Exam Date Time Procedure Performing Provider Status 05/06/20 11:10 AM Chest Portable Shaneka Alanis; Au th (Verified) Notes: (Chest Portable) Reason For Exam: S/P TAVR;Postop RESULT: Chest Portable Chest Portable Reason: Postop; S P TAVR; Clinical Question(s): Other:; Cardiac Tamponade; Special Instructions: onadmission to unit COMPARISON: CT of the chest, abdomen, and pelvis dated March 10, 2020. FINDINGS: LINES AND TUBES: Inferior approach temporary pacing wires noted. LUNGS AND PLEURA: Mild chronic appearing coarsening of interstitial markings. Pulmonary vascularity is within normal limits. No pleural effusion. No pneumothorax. HEART, MEDIASTINUM AND DARYA: Heart is normal in size. Normal upper mediastinal and hilar contour. New prosthetic aortic valve is noted. BONES AND SOFT TISSUES: No acute abnormality. IMPRESSION: No acute abnormality. WSN: [id number] Ordering Physician: Beto Dodson Dictated By: Lacho Roman MD Dictated Date/Time: 05/06/20 11:25 a Reviewed By: Lacho Roman MD Signed By: Lacho Roman MD Signed Date/Time: 05/06/20 11:25 am Transcribed By: DAWNA Transcribed Date/Time: 05/06/20 11:22 am Vital Signs Most recent to oldest [Reference Range]: 1 2 3 Height 158 cm (05/08/20 8:35 AM) 158 cm (05/08/20 5:27 AM) 158 cm (05/08/20 12:37 AM) Weight 76.6 kg (05/08/20 5:28 AM) 74.4 kg (05/07/20 4:06 AM) 77.5 kg (05/06/20 5:56 PM) Oxygen Saturation [94-100 %] 94 % (05/08/20 8:35 AM) 93 % *L* (05/08/20 5:27 AM) 97 % (05/08/20 12:37 AM) Pulse Rate [55-90 bpm] 64 bpm (05/08/20 8:35 AM) 69 bpm (05/08/20 5:27 AM) 66 bpm (05/08/20 12:37 AM) Body Mass Index [18.5-24.99] 31.04 *>HHI* (05/06/20 5:56 PM) 31.16 *>HHI* (05/06/20 7:10 AM) Blood Pressure [90-138/55-84 mm Hg] 120/61mm Hg (05/08/20 8:35 AM) 121/49mm Hg (05/08/20 5:27 AM) 93/36mm Hg (05/08/20 12:37 AM) Respiratory Rate [16-30 br/min] 18 br/min (05/08/20 8:35 AM) 18 br/min (05/08/20 5:27 AM) 18 br/min (05/08/20 12:37 AM) Temperature [96.8-100.4 DegF] 98.0 DegF (05/08/20 8:35 AM) 98.1 DegF (05/08/20 5:27 AM) 98.2 DegF (05/08/20 12:37 AM) Mode of Delivery (Oxygen) Room air (05/08/20 8:35 AM) Room air (05/08/20 5:27 AM) Room air (05/08/20 12:37 AM) Blood pressure sites Arm, right (05/08/20 8:35 AM) Arm, right (05/08/20 5:27 AM) Arm, right (05/08/20 12:37 AM) Temperature Route Oral (05/08/20 8:35 AM) Oral (05/08/20 5:27 AM) Oral (05/08/20 12:37 AM) Dry Weight 77.5 kg (05/06/20 5:56 PM) 77.8 kg (05/06/20 7:10 AM) 77.8 kg (05/06/20 7:10 AM) Weight Obtained Via Bed scale (05/08/20 5:28 AM) Bed scale (05/07/20 4:06 AM) Bed scale (05/06/20 5:56 PM) Dry Weight Obtained Via Bed scale (05/06/20 5:56 PM) Standing scale (05/06/20 7:10 AM) Standing scale (05/06/20 7:10 AM)
--- OUTSIDE RECORDS SUMMARY | 2023-08-19 20:17 | XMS_ITS | Continuity of Care Document ---
Author Organization [facility] ter Address [address] [place] [address]- Care Team Providers Care Weapons And Tactics Instructor Name Role Phone Keke Nguyen MD Primary Care Physician Encounter [facility] Date(s): 06/11/20 - 07/11/[address] [address] Allergies, Adverse Reactions, Alerts Substance Reaction Severity [...] 06/04/20 13:45:00 EST, Route to Pharmacy Electronically, [facility]/pharmacy #[id number], Partial fill upon patient request if the [...] 06/04/20 13:44:00 EST, Route to Pharmacy Electronically, [facility]/pharmacy #[id number], Partial fill upon patient request if [...] 05/07/20 17:36:00 EST, Route to Pharmacy Electronically, [facility]/pharmacy #[id number], Partial fill upon patient request if [...]
--- OUTSIDE RECORDS SUMMARY | 2023-08-19 20:17 | XMS_ITS | Continuity of Care Document ---
Author Organization [facility] Address [address] [place] [address]- Care Team Providers Care Manager Global Name Role Phone Keke Nguyen MD Primary Care Physician En[place] [facility] Date(s): 09/02/20 - 09/09/20 [facility] [address] [place] [address]- Attending Physician: Janeen BLACKWELL, Bryan Redman Admitting [...] 06/04/20 13:45:00 EST, Route to Pharmacy Electronically, [facility]/pharmacy #[id number], Partial fill upon patient request if the [...] 06/04/20 13:44:00 EST, Route to Pharmacy Electronically, [facility]/pharmacy #[id number], Partial fill upon patient [...] 05/07/20 17:36:00 EST, Route to Pharmacy Electronically, [facility]/pharmacy #[id number], Partial fill upon patient [...]
--- OUTSIDE RECORDS SUMMARY | 2023-08-19 20:17 | XMS_ITS | Continuity of Care Document ---
Author Organization [facility] ter Address [address] [place] [address]- Care Team Providers Care Mining Captain Name Role Phone Keke Nguyen MD Primary Care Physician [phone] [place] [facility] [place]/08[place]20 - 03/09/[address] [address]- [facility] Discharge Disposition: A-Transfer VNA/Home Health Attending Physician: Reyes Jones MD Admitting Physician: Reyes Jones MD Referring Physician: Reyes Jones MD Allergies, Adverse Reactions, Alerts Substance Reaction Severity Status codeine Active penicillin Allergy to penicilli n Aspirin allergy Codeine allergy Allergy to sulfa drugs Active aspirin Active sulfa drugs Active Medications acetaminophen 325 mg oral tablet 650 [...] 8:09:00 EDT Start Date: 02/02/20 Status: Ordered chlorthalidone 25 mg oral tablet 25 mg, 1, tablet, By Mouth, Daily, # 30 tablet, Refills 0, Maintenance, 03/08/20 6:49:00 EST Start Date: 03/08/20 Status: Ordered clopidogrel 75 mg oral tablet 75 mg, 1, tablet, By Mouth, Daily, Refills 0, Maintenance, 02/02/20 8:10:00 EDT Start Date: 02/02/20 Status: Ordered Colace Capsule 100 mg, 1, capsule, By Mouth, 2 times a day, hold for loose stools, Refills 0, Maintenance, 03/09/20 9:18:00 EST Start Date: 03/09/20 Status: Ordered Levoxyl 0.088 mg oral tablet [...] 0 Refills Start Date: 04/05/09 Status: Ordered oxyCODONE 5 mg oral tablet See Instructions, PRN, Take 1-2 tablets By Mouth Every 4 hours as needed, # 60 tablet, Refills 0, Tot. Refills 0, Acute 03/14/20 9:09:00 EST, Pain , Mild, 03/09/20 9:09:00 EST, Instructions Replace Required Details, Route to Pharmacy Electronically, B... Start Date: 03/09/20 Stop Date: 03/14/20 Status: Ordered pantoprazole 40 mg oral delayed [...] 03/16/20 9:14:00 EST, 03/09/20 9:13:00 EST, Tablet, [facility], 157.4, cm, 03/09/20 6:16:00 [...] EDT Start Date: 02/02/20 Status: Ordered warfarin 1 mg oral tablet See Instructions, Take 1-10 tablets By Mouth Daily as directed by [facility], # 150 tablet, 0 Refills, Maintenance, 03/09/20 9:15:00 EST, Tablet, [facility], 157.4, cm, 03/09/20 6:16:00 EST, Height, 76.4, kg, 03/08/20 6:50:00 EST, Dry Weight Start Date: 03/09/20 Stop Date: 04/07/20 Status: Ordered Results Radiology Reports * Exam Date Time Procedure Performing Provider Status 03/08/20 2:21 PM Knee 1 or 2 Views Left Alfredo Mcleod; Armani (Verified) Notes: (Knee 1 or 2 Views Left) Reason For Exam: OA lt knee RESULT: Knee 1 or 2 Views Left Examination: Left knee performed on 03/08/2020. History: Reason: OA lt knee Findings: Frontal and lateral views of the left knee are submitted. A left total knee arthroplasty is demonstrated in expected location without evidence of hardware complication. No fractures are seen. Soft tissue air consistent with the recent surgical procedure is noted. There is no joint effusion. The soft tissues are unremarkable. IMPRESSION: Status post left total knee arthroplasty. Expected postsurgical changes are noted. WSN: [id number] Ordering Physician: Reyes Jones Dictated By: Delisa Lawson MD Dictated Date/Time: 03/08/20 2:31 pm Reviewed By: Delisa Lawson MD Signed By: Delisa Lawson MD Signed Date/Time: 03/08/20 2:31 pm Transcribed By: DAWNA Transcribed Date/Time: 03/08/20 2:30 pm Vital Signs Most recent to oldest [Reference Range]: 1 2 3 Height 157.4 cm (03/09/20 6:16 AM) 157.4 cm (03/08/20 4:15 PM) 157.4 cm (03/08/20 11:19 AM) Weight 76.4 kg (03/08/20 11:19 AM) 76.4 kg (03/08/20 6:23 AM) Oxygen Saturation [94-100 %] 93 % *L* (03/09/20 6:16 AM) 94 % (03/09/20 3:00 AM) 94 % (03/08/20 11:00 PM) Pulse Rate [55-90 bpm] 71 bpm (03/09/20 6:16 AM) 76 bpm (03/09/20 3:00 AM) 80 bpm (03/08/20 11:00 PM) Body Mass Index [18.5-24.99] 30.84 *>HHI* (03/08/20 11:19 AM) 30.84 *>HHI* (03/08/20 6:23 AM) Blood Pressure [90-138/55-84 mm Hg] 125/53mm Hg (03/09/20 6:16 AM) 112/55mm Hg (03/09/20 3:00 AM) 101/45mm Hg (03/08/20 11:00 PM) Respiratory Rate [16-30 br/min] 16 br/min (03/09/20 6:16 AM) 18 br/min (03/09/20 3:00 AM) 18 br/min (03/08/20 11:00 PM) Temperature [96.8-100.4 DegF] 98.2 DegF (03/09/20 6:16 AM) 97.6 DegF (03/09/20 3:00 AM) 97.6 DegF (03/08/20 11:00 PM) Liters per Minute 3 L/min (03/08/20 2:15 PM) Mode of Delivery (Oxygen) Room air (03/09/20 6:16 AM) Room air (03/09/20 3:00 AM) Room air (03/08/20 11:00 PM) Blood pressure sites Arm, right (03/09/20 6:16 AM) Arm, right (03/09/20 3:00 AM) Arm, right (03/08/20 11:00 PM) Temperature Route Oral (03/09/20 6:16 AM) Oral (03/09/20 3:00 AM) Oral (03/08/20 11:00 PM) Dry Weight 76.4 kg (03/08/20 6:23 AM) Social History Social History Type Response Sex Female
--- OUTSIDE RECORDS SUMMARY | 2023-08-19 20:17 | XMS_ITS | Continuity of Care Document ---
Author Organization [facility] Address [address] [place] [address]- Care Team Providers Care Music Industry Internship Name Role Phone Keke Nguyen MD Primary Care Physician [place] [facility] [place] 07/05[place] 08/04/20 [facility] [address] [place], [place] [address] Attending Physician: Jessa Swain Admitting Physician: AdmtrJessa Referring Physician: Admtr, Ar8 Allergies, Adverse Reactions, [...] 06/04/20 13:45:00 EST, Route to Pharmacy Electronically, [facility]/pharmacy #[id number], Partial fill upon patient request if the [...] 06/04/20 13:44:00 EST, Route to Pharmacy Electronically, [facility]/pharmacy #[id number], Partial fill upon patient request if the prescription is for a schedule II opioid drug... Start Date: 06/04/20 Status: Ordered Levoxyl 0.088 mg oral tablet 1 tablet = 88 mcg, By Mouth, Daily, 1 /2 tab on Sunday, 0 Refills, Maintenance, 02/02/20 8:09:00 EDT Start Date: 02/02/20 Status: Ordered metoprolol 25 mg oral tablet 25 mg, 1, tablet, By Mouth, 3 times a day, Use Metoprolol Tartrate, # 90 tablet, Refills 0, Tot. Refills 0, Maintenance, 05/07/20 17:36:00 EST, Route to Pharmacy Electronically, [facility]/pharmacy #[id number], Partial fill upon patient request if [...]
--- OUTSIDE RECORDS SUMMARY | 2023-08-19 20:17 | XMS_ITS | Continuity of Care Document ---
Author Organization [facility] Address [address] [place] [address]- Care Team Providers Care Ski Lift Attendant Name Role Phone Keke Nguyen MD Primary Care Physician En[place] [facility] [place] Date(s): 08/04/21 - 09/03/21 [facility] [address] [place], [place] [address] Attending Physician: AdmJessa dias Admitting Physician: Admtr, Jessa Referring Physician: Admtr, Ar8 Allergies, Adverse Reactions, [...] 13:45:00 EST, Route to Pharmacy Electronically, [facility]/pharmacy #[id number], Partial fill upon patient request if the [...] 13:44:00 EST, Route to Pharmacy Electronically, [facility]/pharmacy #[id number], Partial fill upon patient request [...] 17:36:00 EST, Route to Pharmacy Electronically, [facility]/pharmacy #[id number], Partial fill upon patient request [...]
--- OUTSIDE RECORDS SUMMARY | 2023-08-19 20:17 | XMS_ITS | Continuity of Care Document ---
Author Organization [facility] Address [address] [place] [address]- Care Team Providers Care Press Secretary Name Role Phone Keke Nguyen MD Primary Care Physician Encounter [facility] Date(s): 09/02/20 - 10/02/20 [facility] [address] [place], [place] [address] Attending Physician: AdmJessa dias Admitting Physician: Admtr, [...] 06/04/20 13:45:00 EST, Route to Pharmacy Electronically, [facility]/pharmacy #[id number], Partial fill upon patient request if the [...] 06/04/20 13:44:00 EST, Route to Pharmacy Electronically, [facility]/pharmacy #[id number], Partial fill upon patient request [...] 05/07/20 17:36:00 EST, Route to Pharmacy Electronically, [facility]/pharmacy #[id number], Partial fill upon patient request [...]
--- OUTSIDE RECORDS SUMMARY | 2023-08-19 20:17 | XMS_ITS | Continuity of Care Document ---
Author Organization [facility] Address [address] [place] [address]- Care Team Providers Care Pot Runner Name Role Phone Keke Nguyen MD Primary Care Physician [phone] Encounter [facility] Date(s): 07/15/21 - 08/14/21 [facility] [address] [place], [place] [address] Attending Physician: AdmJessa dias Admitting Physician: AdmtrJessa Referring Physician: Admtr, Ar8 Allergies, Adverse Reactions, Alerts Substance Reaction Severity Status codeine hives Active penicillin hives Allergy to penicillin Aspirin allergy Codeine allergy Allergy to sulfa drugs Active Mushrooms hives Active aspirin stomach pain Active sulfa drugs 1 migraines Active 1Patient tolerates furosemide Immunizations Given and [...] 13:45:00 EST, Route to Pharmacy Electronically, [facility]/pharmacy #[id number], Partial fill upon patient request if the [...] 13:44:00 EST, Route to Pharmacy Electronically, [facility]/pharmacy #[id number], Partial fill upon patient request [...] 17:36:00 EST, Route to Pharmacy Electronically, [facility]/pharmacy #[id number], Partial fill upon patient request [...]
--- OUTSIDE RECORDS SUMMARY | 2023-08-19 20:17 | XMS_ITS | Continuity of Care Document ---
Author Organization [facility] Address [address] [place] [address]- Care Team Providers Care Payroll Services Analyst Name Role Phone Keke Nguyen MD Primary Care Physician Encounter [facility] Date(s): 06/17/20 - 07/17/20 [facility] [address] [place] [address]- Allergies, Adverse Reactions, Alerts Substance Reaction Severity [...] 06/04/20 13:45:00 EST, Route to Pharmacy Electronically, [facility]/pharmacy #[id number], Partial fill upon patient request if the [...] 06/04/20 13:44:00 EST, Route to Pharmacy Electronically, [facility]/pharmacy #[id number], Partial fill upon patient request if [...] 05/07/20 17:36:00 EST, Route to Pharmacy Electronically, [facility]/pharmacy #[id number], Partial fill upon patient request if [...]
--- OUTSIDE RECORDS SUMMARY | 2023-08-19 20:17 | XMS_ITS | Continuity of Care Document ---
Author Organization [facility] Address [address] [place] [address]- Care Team Providers Care Presbyterian Clergy Name Role Phone Keke Nguyen MD Primary Care Physician Encounter [facility] [place] Date(s): 08/04/21 - 08/11/21 [facility] [address] [place], [place] [address] Attending Physician: Janeen BLACKWELL, Bryan Redman Admitting [...] 06/04/20 13:45:00 EST, Route to Pharmacy Electronically, [facility]/pharmacy #[id number], Partial fill upon patient request if the [...] 06/04/20 13:44:00 EST, Route to Pharmacy Electronically, [facility]/pharmacy #[id number], Partial fill upon patient request [...] 05/07/20 17:36:00 EST, Route to Pharmacy Electronically, [facility]/pharmacy #[id number], Partial fill upon patient request [...]
--- OUTSIDE RECORDS SUMMARY | 2023-08-19 20:17 | XMS_ITS | Continuity of Care Document ---
Author Organization [facility] Address [address] [place] [address]- Care Team Providers Care Round Kiln Drawer Name Role Phone Keke Nguyen MD Primary Care Physician [place] [facility] Date(s[place] 06/02/20 - 06/04/[address] [address]- Encounter Diagnosis COPD exacerbation(Final) - 06/02/20 Discharge Disposition: A-D/C Home Attending Physician: Danni Phan MD Admitting Physician: Danni Phan MD Referring Physician: Not on Staff, Referring [...] 06/04/20 13:45:00 EST, Route to Pharmacy Electronically, [facility]/pharmacy #[id number], Partial fill upon patient request if the prescription is for a schedule II opioid drug.... Start Date: 06/04/20 Status: Ordered amLODIPine 5 mg oral tablet 2.5 mg, Tablet, By Mouth, 06/04/20 9:00:00 EST Start Date: 06/04/20 Stop Date: 06/04/20 Status: Completed atorvastatin 40 mg oral tablet 1 tablet = 40 mg, By Mouth, Daily, 0 Refills, Maintenance, 02/02/20 8:09:00 EDT Start Date: 02/02/20 Status: Ordered furosemide 20 mg oral tablet 60 mg, 3, tablet, By Mouth, Daily, # 90 tablet, Refills 0, Tot. Refills 0, Maintenance, 06/04/20 13:44:00 EST, Route to Pharmacy Electronically, [facility]/pharmacy #[id number], Partial fill upon patient request if the prescription is for a schedule II opioid drug... Start Date: 06/04/20 Status: Ordered Levoxyl 0.088 mg oral tablet 1 tablet = 88 mcg, By Mouth, Daily, 1 1/2 tab on Sunday, 0 Refills, Maintenance, 02/02/20 8:09:00 EDT Start Date: 02/02/20 Status: Ordered metoprolol 25 mg oral tablet 25 mg, Tablet, By Mouth, 06/04/20 9:00:00 EST Start Date: 06/04/20 Stop Date: 06/04/20 Status: Completed metoprolol 25 mg oral tablet 25 mg, 1, tablet, By Mouth, 3 times a day, Use Metoprolol Tartrate, # 90 tablet, Refills 0, Tot. Refills 0, Maintenance, 05/07/20 17:36:00 EST, Route to Pharmacy Electronically, [facility]/pharmacy #[id number], Partial fill upon patient request if the prescription... Start Date: 05/07/20 Stop Date: 06/06/20 Status: Ordered metoprolol 25 mg oral tablet 25 mg, Tablet, By Mouth, 06/04/20 15:00:00 EST Start Date: 06/04/20 Stop Date: 06/04/20 Status: Completed MiraLax Powder 1 pack/packet = 17 Gm, [...] Exam Date Time Procedure Performing Provider Status 06/02/20 8:56 AM Chest 2 Views Frontal and Lat Ekenbarg annel , Glory Lomeli (Verified) Notes: (Chest 2 Views Frontal and Lat) Reason For Exam: Angina RESULT: Chest 2 Views Frontal and Lat Chest 2 Views Frontal and Lat Hx of Present Illness: Pt arrived to ED via EMS c o x3 days of SOB. Per pt she has PMHx of COPD CHF. Secondary c o bilat lower ext. edema. 2+ pitting. No home O2 at baseline. Denies fever, N V D, CP or lightheadedness.; Reason: Angina; Clinical Question(s): CHF COMPARISON: Multiple prior chest x-rays, the most recent of which is dated 05/07/20. FINDINGS: LINES AND TUBES: There is a dual-lead pacer with power pack overlying the left upper chest. LUNGS AND PLEURA: No focal infiltrate. Increasing interstitial opacities. There is slight blunting the posterior costophrenic angles, which results effusions. No pneumothorax. HEART, MEDIASTINUM AND DARYA: The cardiac silhouette is normal in size. The patient is status post TAVR. Calcification is seen inthe aortic arch. BONES AND SOFT TISSUES: No acute abnormality. IMPRESSION: Increasing interstitial opacities compatible with interstitial edema. Trace bilateral pleural effusions. WSN: [id number] Ordering Physician: Sreedhar Rehman MD Dictated By: Stephanie Chow MD Dictated Date/Time: 06/02/20 9:24 am Reviewed By: Stephanie Chow MD Signed By: Stephanie Chow MD Signed Date/Time: 06/02/20 9:24 am Transcribed By: DAWNA Transcribed Date/Time: 06/02/20 9:22 am Vital Signs Most recent to oldest [Reference Range]: 1 2 3 Height 158 cm (06/04/20 7:54 AM) 158 cm (06/04/20 3:36 AM) 158 cm (06/04/20 12:05 AM) Weight 76.1 kg (06/04/20 3:37 AM) 74.2 kg (06/03/20 5:34 AM) 73.0 kg (06/02/20 10:24 PM) Oxygen Saturation [94-100 %] 97 % (06/04/20 7:54 AM) 93 % *L* (06/04/20 3:36 AM) 93 % *L* (06/04/20 12:05 AM) Pulse Rate [55-90 bpm] 61 bpm (06/04/20 3:34 PM) 64 bpm (06/04/20 9:00 AM) 60 bpm (06/04/20 7:54 AM) Body Mass Index [18.5-24.99] 29.72 *H* (06/03/20 5:34 AM) 29.24 *H* (06/02/20 10:24 PM) Blood Pressure [90-138/55-84 mm Hg] 158/68mm Hg *H* (06/04/20 3:34 PM) 168/68mm Hg *H* (06/04/20 9:00 AM) Systolic Blood Pressure [90-138 mm Hg] 168 mm Hg *H* (06/04/20 9:00 AM) Diastolic Blood Pressure [55-84 mm Hg] 68 mm Hg (06/04/20 7:54 AM) Respiratory Rate [16-30 br/min] 18 br/min (1/29/21 7:54 AM) 20 br/min (06/04/20 3:36 AM) 20 br/min (06/04/20 12:05 AM) Temperature [96.8-100.4 DegF] 97.5 DegF (06/04/20 7:54 AM) 97.7 DegF (06/04/20 3:36 AM) 97.6 DegF (06/04/20 12:05 AM) Liters per Minute 3 L/min (06/03/20 7:57 AM) 4 L/min (06/03/20 5:34 AM) 4 L/min (06/03/20 12:23 AM) Mode of Delivery (Oxygen) Room air (06/04/20 7:54 AM) Room air (06/04/20 3:36 AM) Room air (06/04/20 12:05 AM) Blood pressure sites Arm, right (06/04/20 7:54 AM) Arm, left (06/04/20 3:36 AM) Arm, right (06/04/20 12:05 AM) Temperature Route Oral (06/04/20 7:54 AM) Oral (06/04/20 3:36 AM) Oral (06/04/20 12:05 AM) Dry Weight 73.0 kg (06/02/20 10:24 PM) 77.5 kg (06/02/20 5:15 PM) 77.5 kg (06/02/20 2:00 PM) Weight Obtained Via Bed scale (06/04/20 3:37 AM) Bed scale (06/03/20 5:34 AM) Bed scale (06/02/20 10:24 PM)
--- OUTSIDE RECORDS SUMMARY | 2023-08-19 20:17 | XMS_ITS | Continuity of Care Document ---
Author Organization [facility] Address [address] [place] [address]- Care Team Providers Care Medical Numerical Control Operator Name Role Phone Keke Nguyen MD Primary Care Physician [phone] Encounter [facility] [place] Date(s): 04/28/20 - 05/28/20 [facility] [address] [place] [id number] Attending Physician: Admtr, Jessa Admitting Physician: Admtr, Ar8 Referring Physician: Admtr, [...] 03/15/20 14:35:00 EST, Route to Pharmacy Electronically, [facility]/pharmacy #[id number], 158, cm, 03/15/20 13:59:00 EST, Height, [...] 05/07/20 17:36:00 EST, Route to Pharmacy Electronically, [facility]/pharmacy #[id number], Partial fill upon patient request if the [...]
--- OUTSIDE RECORDS SUMMARY | 2023-08-19 20:17 | XMS_ITS | Continuity of Care Document ---
Author Organization [facility] Address [address] [place] [address]- Care Team Providers Care Hourly Sign Language Interpreter Name Role Phone Keek Nguyen MD Primary Care Physician Encounter [facility] [place] Date(s): 07/01/20 - 07/08/20 [facility] [address] [place] [address]- Attending Physician: Janeen BLACKWELL, Bryan Redman Admitting Physician: Janeen BLACKWELL, Bryan Redman Referring Physician: Alberto Kelley MD Allergies, Adverse Reactions, Alerts Substance Reaction [...] 06/04/20 13:45:00 EST, Route to Pharmacy Electronically, [facility]/pharmacy #[id number], Partial fill upon patient request if the [...] 06/04/20 13:44:00 EST, Route to Pharmacy Electronically, [facility]/pharmacy #[id number], Partial fill upon patient request [...] 05/07/20 17:36:00 EST, Route to Pharmacy Electronically, [facility]/pharmacy #[id number], Partial fill upon patient request [...] 8:11:00 EDT Start Date: 02/02/20 Status: Ordered Vital Signs Most recent to oldest [Reference Range]: 1 Height 158 cm (07/01/20 1:41 PM) Weight 75.45 kg (07/01/20 1:41 PM) Oxygen Saturation [94-100 %] 97 % (07/01/20 1:41 PM) Pulse Rate [55-90 bpm] 62 bpm (07/01/20 1:41 PM) Body Mass Index [18.5-24.99] 30.22 *>HHI* (07/01/20 1:41 PM) Blood Pressure [90-138/55-84 mm Hg] 138/ 66mm Hg (07/01/20 1:41 PM) Blood pressure sites Arm, right (07/01/20 1:41 PM) Weight Obtained Via Patient/family state d (07/01/20 1:41 PM)
--- OUTSIDE RECORDS SUMMARY | 2023-08-19 20:18 | XMS_ITS | Continuity of Care Document ---
Author Organization [facility] Address [address] [place] [address]- Care Team Providers Care Pot Operator Name Role Phone Keke Nguyen MD Primary Care Physician [place] [facility] [place] 03/22/20 - 04/21/20 [facility] [address] [place], [place] [address] Attending Physician: AdmtrJessa Admitting Physician: AdmtrJessa Referring Physician: Admtr, Ar8 [...] 03/15/20 14:35:00 EST, Route to Pharmacy Electronically, [facility]/pharmacy #[id number], 158, cm, 03/15/20 13:59:00 [...] 0 Refills, Maintenance, 03/15/20 14:35:00 EST, Tablet, [facility]/pharmacy #[id number], 158, cm, 03/15/20 13:59:00 EST, Height, 75, kg, 03/11/20 0:01:00 EST, Dry Weight Start Date: 03/15/20 Status: Ordered
--- OUTSIDE RECORDS SUMMARY | 2023-08-19 20:18 | XMS_ITS | Continuity of Care Document ---
Author Organization [facility] Address [address] [place] [address]- Care Team Providers Care Inspector Returned Materials Name Role Phone Keke Nguyen MD Primary Care Physician [place] [facility](s): 07/19/20 - 07/26/20 [facility] [address] [place] [address]- Attending Physician: Janeen BLACKWELL, Bryan Redman Admitting [...] 06/04/20 13:45:00 EST, Route to Pharmacy Electronically, [facility]/pharmacy #[id number], Partial fill upon patient request if the [...] 06/04/20 13:44:00 EST, Route to Pharmacy Electronically, [facility]/pharmacy #[id number], Partial fill upon [...] 05/07/20 17:36:00 EST, Route to Pharmacy Electronically, [facility]/pharmacy #[id number], Partial fill upon [...]
[2023-08-19 20:20] LABS: Troponin-I High Sensitivity 3.4 ng/L (<3.5-17.0)
--- NOTE | 2023-08-19 21:17 | ED_ITS ---
HPI - Arrhythmia/Palpitations General Chief Complaint: Arrhythmia/Palpitations Stated Complaint: PT HAS DEFIB/PACEMAKER, FEELING OFF THIS MORNING Time Seen by Provider: 08/19/23 21:14 Source: patient Mode of arrival: ambulatory Limitations: no limitations History of Present Illness HPI narrative: 83-year-old female with a history of COPD on 3 L of oxygen via nasal cannula chronically, obstructive sleep apnea, who presents emergency department for evaluation of not feeling well and her pacemaker/defibrillator making a ticking noise. The patient states that when she woke up this morning her pacemaker was making an intermittent clicking noise that she is never heard before. She denies having any defibrillator shocks. She states that the noise is been going on all day and she states that she was not feeling well but she has very vague symptoms. She states she had a headache and loss of appetite. She denied fever, chills, rhinorrhea, sore throat, chest pain, nausea, vomiting, diarrhea, frequency, urgency, dysuria, dark tarry stools or black stools. She states that she is chronically short of breath and has chronic dyspnea secondary to her COPD. She states she has a cough which is also related to her COPD. Related Data Previous Rx's ?Medication ?Instructions ?Recorded furosemide 20 mg tablet (Lasix) 20 mg PO DAILY #10 tabs 05/05/23 potassium gluconate 500 mg (83 mg) 500 mg PO DAILY #10 tabs 05/05/23 tablet Allergies Allergy/AdvReac Type Severity Reaction Status Date / Time Penicillins [PCN] Allergy Mild RASH Verified 08/19/23 19:47 Sulfa (Sulfonamide Allergy Mild RASH Verified 08/19/23 19:47 Antibiotics) [SULFA (SULFONAMIDE ANTIBIOTICS)] codeine [CODEINE] AdvReac Mild NAUSEA & Verified 08/19/23 19:47 VOMITING Review of Systems 2 Review of Systems: Yes all other systems are reviewed and are negative [facility] Past Medical History [facility] Narrative: Social history: She denies tobacco, alcohol and drug use. Social History Social History Smoked in Last 30 Days: No Use of substances other than those prescribed or required for medical reasons: No Advance Directives: Yes Advance Directives Information Provided: No Advance Directives on File: No Physical Exam 2 Vital Signs: Vital Signs: Last Vital Signs Temp 98.0 F 08/19/23 23:07 Pulse 68 08/19/23 23:07 Resp 17 08/19/23 23:07 BP 146/65 H 08/19/23 23:07 Pulse Ox 92 08/19/23 23:07 O2 Del Method Room Air 08/19/23 23:07 BMI result Body Mass Index 26.9 Vital signs revealed an elevated blood pressure of 146/50 otherwise unremarkable, O2 saturation is 92% on room air but the patient states she wears oxygen 3 L via nasal cannula chronically secondary to her dyspnea on exertion. Exam: General: Awake, alert in no distress Head: Normocephalic, atraumatic EENT: PERRL, Lids normal, sclera normal, conjunctiva normal, nose normal , ears normal, throat without erythema or exudates Neck: Supple, no adenopathy Lung: breath sounds symmetric, no wheezing, rales or rhonchi Chest: symmetric movement, nontender, patient has a electronic device to her left chest wall, there has no erythema, warmth or tenderness over this area. Heart: regular rate and rhythm 3/6 systolic murmur best heard at the right upper sternal border radiating to the neck Abdomen: soft, non-tender, nondistended, normal bowel sounds Back: no vertebral tenderness, no CVAT Extremities: no deformities, moves all extremities symmetrically Neuro: Awake, alert, oriented, normal speech, cranial nerves intact, moves all extremities symmetrically Psych: Pleasant, cooperative Medical Decision Making Medical Decision Making MDM Narrative: 83-year-old female with a history of COPD on 3 L of oxygen via nasal cannula chronically, obstructive sleep apnea, who presents emergency department for evaluation of not feeling well and her pacemaker/defibrillator making a ticking noise. The patient states that when she woke up this morning her pacemaker was making an intermittent ticking noise that she is never heard before. She denies having any defibrillator shocks. Patient complained of a headache and lack of appetite otherwise review of systems was negative. She does have COPD and she has a chronic cough. Differential diagnosis: ?Includes but is not limited to pacemaker dysfunction, arrhythmia, electrolyte abnormality, myocardial infarction, anemia Following evaluation was ordered: CBC, CMP, troponin, EKG, residential monitor, O2 saturation monitor Course: 22:05 My interpretation patient's laboratory evaluation as follows: CBC was normal except for low platelet count of a [id number] is chronic. BUN is elevated 27. Glucose elevated 135. Total bilirubin elevated 1.3. Troponin detectable but not elevated at 3.4. Patient's 12 EKG was revealed poor R-wave progression and a prolonged QTC interval of 477 milliseconds which was improved from a previous EKG done on 05/05/2023 poor R-wave progression is old, QTC was prolonged at 501 milliseconds. I did interrogate the patient's patient's pacemaker with the [employer] at home transmitter and then waiting for the report. 23:28 At this time, I have not received a report from the device interrogation and it is uncertain if the interrogation was even successful. I did discuss this with the patient. At this time I do not think that the symptoms that she is having her due to pacemaker or defibrillator malfunction and that she should contact her market research senior project manager in the morning to get her device interrogated in the office determine what is causing the beeping sound. Patient was given printed and verbal instructions discharged home. Lab Data 08/19/23 19:52 08/19/23 19:52 Labs: Lab Results 08/19/23 Range/Units 19:52 WBC 9.0 (4.8-10.8) X10*3/uL RBC 4.51 (4.20-5.50) X10*6/uL Hgb 13.1 (12.0-16.0) g/dl Hct 39.7 (37.0-47.0) % MCV 88.0 (80.0-98.0) fL MCH 29.0 (27.0-33.0) pg MCHC 33.0 (31.0-35.0) g/dl RDW 13.1 (11.0-16.0) % Plt Count 144 L (160-400) X10*3/uL MPV 10.0 (9.4-12.3) fL Immature Gran % (Auto) 0.2 (0.0-0.4) % Neut % (Auto) 62.3 (45-73) % Lymph % (Auto) 27.2 (20-40) % Jay % (Auto) 8.4 (2-11) % Eos % (Auto) 1.3 (0-4) % Baso % (Auto) 0.6 (0-2) % Lymph # (Auto) 2.5 (1.2-4.9) X10*3/uL Jay # (Auto) 0.8 (0.1-1.2) X10*3/uL Eos # (Auto) 0.1 (0.0-0.4) X10*3/uL Baso # (Auto) 0.1 (0.0-0.2) X10*3/uL Abs Immat Gran (auto) 0.02 (0.00-0.03) X10*3/uL Absolute Neuts (auto) 5.6 (2.0-8.3) x10*3/uL Absolute Nucleated RBC 0.000 (0.0-0.012) X10*3/uL Nucleated RBC % (auto) 0.0 (0.0-0.2) /100WBC Sodium 139 (135-145) mmol/L Potassium 3.4 (3.3-5.1) mmol/L Chloride 97 (96-108) mmol/L Carbon Dioxide 29 (22-29) mmol/L Anion Gap 16 (12-20) BUN 27 H (9-16) mg/dL Creatinine 1.10 (0.5-1.4) mg/dL Estim Creat Clear Calc 35.9 Estimated GFR 48 Random Glucose 135 H (60-115) mg/dL Calcium 9.5 (8.4-10.2) mg/dL Total Bilirubin 1.3 H (0.0-1.0) mg/dL AST 23 (5-31) U/L ALT 11 (0-31) U/L Alkaline Phosphatase 67 (39-117) U/L Troponin I High Sens 3.4 D (<3.5-17.0) ng/L Total Protein 7.5 (6.5-8.0) g/dL Albumin 4.2 (3.5-5.0) g/dL Independent Interpretation I performed an independent interpretation of an: EKG Interpretation: My independent interpretation patient's 12 lead EKG done at 19:41 hours is as follows: Normal sinus rhythm with a rate of 74, normal NM interval, QRS duration and slightly prolonged QTC interval of 477 millisecond, no ST segment elevation, no ST segment depression, PVCs poor R-wave progression V1 and V2, compared to EKG dated 05/05/2023 poor R-wave progression is old, QTC was prolonged at 501 milliseconds. Discharge Plan Discharge Clinical Impression: Pacemaker complications, Headache Patient Disposition: Home, Self-Care Additional Instructions: Your blood work was normal. At this time I do not think that your symptoms of loss of appetite and headache are caused by your pacemaker/defibrillator male functioning. Often if your pacemaker/defibrillator beeps it means that there may be an issue that needs to be evaluated by your market research senior project manager. Call the cardiology office where you get your care and tell them that your pacemaker/defibrillator is beeping and they need to interrogate the device in their office. Follow-up with your doctor in 2 days. Please return to the emergency department if your symptoms get worse or if you develop any symptoms that are concerning to you. Prescriptions: No Action furosemide [Lasix] 20 mg tablet 20 mg PO DAILY Qty: 10 0RF potassium gluconate 500 mg (83 mg) tablet 500 mg PO DAILY Qty: 10 0RF Print Language: Barbadian
[2023-08-19 23:07] VITALS: BP 146/65; PULSE 68; RESP 17; TEMP 36.7; O2SAT 92
[2023-08-20 00:16] VITALS: BP 163/57; PULSE 66; RESP 18; TEMP 36.7; O2SAT 92
== END 2023-08-20 00:21 | disposition home or self-care (01) ==
PROVIDERS: Emergency Provider Emergency Medicine Emergency Medical Services
DX: T82.897A Other specified complication of cardiac prosthetic devices, implants and grafts, initial encounter (principal); Y71.1 Therapeutic (nonsurgical) and rehabilitative cardiovascular devices associated with adverse incidents; Y92.9 Unspecified place or not applicable; R51.9 Headache, unspecified; J44.9 Chronic obstructive pulmonary disease, unspecified; Z99.81 Dependence on supplemental oxygen; Z88.0 Allergy status to penicillin; Z88.2 Allergy status to sulfonamides
CPT/HCPCS: 36415; 80053; 84484; 85025; 93005; 99284; 99285

== ENCOUNTER → 2023-08-19 19:41 | Outpatient (BNV) | payer MEDICARE, SELFPAY | PROVIDERS: Emergency Provider Emergency Medicine Emergency Medical Services; Visit Provider Internal Medicine | DX: R94.31 Abnormal electrocardiogram [ECG] [EKG] (principal) | CPT/HCPCS: 93010 ==

== ENCOUNTER 2024-03-06 14:31 | Emergency (ER) | payer MEDICARE, SELFPAY ==
--- NOTE | 2024-03-06 | ECG_ITS ---
Test Reason : HYPERTENSION Blood Pressure : / mmHG Vent. Rate : 063 BPM Atrial Rate : 063 BPM P-R Int : 186 ms QRS Dur : 094 ms QT Int : 482 ms P-R-T Axes : 082 -35 053 degrees QTc Int : 493 ms Normal sinus rhythm Left axis deviation Minimal voltage criteria for LVH, may be normal variant ( [employer] product ) Nonspecific ST abnormality Abnormal ECG When compared with ECG of 19-AUG-2023 19:41, No significant change was found Referred By: Generic ED Physician Electronically Signed By:SULMA RACHEL
--- NOTE | ~2024-03-06 | CT_ITS ---
EXAMINATION: CT HEAD WITHOUT CONTRAST CLINICAL INFORMATION: Headache x3 days. COMPARISON: None available. TECHNIQUE: Contiguous axial imaging was performed from the skull base to vertex without intravenous administration of contrast. This CT examination was performed using dose optimization techniques as appropriate, variously including the following: *Automated exposure control *Adjustment of mA and/or kV according to patient size (this includes techniques or standardized protocols for targeted exams where dose is matched to indication/reason for exam; i.e. extremities or head) *Use of iterative reconstruction technique DLP: 522 mGy-cm FINDINGS: There is no evidence of acute intracranial hemorrhage or large evolving territorial infarction. No mass effect or midline shift is seen. Hugo to white matter differentiation is preserved. No extra-axial fluid collections are identified. No hydrocephalus. The osseous structures and soft tissues are intact. The mastoid air cells and visualized portions of the paranasal sinuses are well aerated. CT/CT head/brain wo IV con IMPRESSION: No acute intracranial abnormality. Electronically signed by: Jasper Chinchilla MD 03/06/2024 04:39 PM EDT
[2024-03-06 15:13] VITALS: BP 182/62; PULSE 69; O2SAT 96
[2024-03-06 15:21] VITALS: BP 167/61; PULSE 68; RESP 18; TEMP 37; O2SAT 98; BMI 24.4
[2024-03-06 15:51] LABS: MANUAL DIFF FLAG NO
[2024-03-06 15:57] LABS: Basophils Absolute Auto 0.1 X10*3/uL (0.0-0.2); Basophils Percent Auto 0.6 % (0-2); Eosinophils Absolute Auto 0.1 X10*3/uL (0.0-0.4); Eosinophils Percent Auto 0.8 % (0-4); Hematocrit 37.3 % (37.0-47.0); Hemoglobin 12.5 g/dl (12.0-16.0); Imm Gran Abs Auto 0.04 X10*3/uL (0.00-0.03); Imm Gran Pct Auto 0.5 % (0.0-0.4); Lymphocytes Absolute Auto 2.2 X10*3/uL (1.2-4.9); Lymphocytes Percent Auto 26.6 % (20-40); Mean Corpuscular HGB Conc 33.5 g/dl (31.0-35.0); Mean Corpuscular Hemoglobin 30.6 pg (27.0-33.0); Mean Corpuscular Volume 91.2 fL (80.0-98.0); Mean Platelet Volume 9.9 fL (9.4-12.3); Monocytes Absolute Auto 0.7 X10*3/uL (0.1-1.2); Monocytes Percent Auto 8.2 % (2-11); Neutrophils Absolute Auto 5.2 x10*3/uL (2.0-8.3); Neutrophils Percent Auto 63.3 % (45-73); Platelet Count 136 X10*3/uL (160-400); Red Blood Count 4.09 X10*6/uL (4.20-5.50); Red Cell Distribution Width 13.1 % (11.0-16.0); White Blood Count 8.3 X10*3/uL (4.8-10.8)
--- NOTE | 2024-03-06 16:04 | ED.GENADULT ---
HPI - General Adult General Chief complaint: General Medical Stated complaint: VIVEROS HX OF HTN Time Seen by Provider: 03/06/24 15:56 Source: patient Mode of arrival: EMS Limitations: no limitations History of Present Illness HPI narrative: Patient is an 83-year-old female with past medical history of hypertension presenting to the emergency department via EMS from [facility]. Her brother is at bedside he reports that staff there called him with concern that she ?appeared unwell? and was reporting having headache and they found her blood pressure to be elevated. She states that she has had a headache over the past few days (although her report of duration ranges anywhere from 2-4 days) which she describes as ?head cold? with no upper respiratory symptoms no congestion. She denies associated dizziness, lightheadedness, vision changes, neck pain, neck stiffness, chest pain, shortness of breath, numbness or tingling of the extremities. She has been taking Tylenol intermittently with some improvement in the headache. She denies any history of chronic headache/migraine. Related Data Previous Rx's ?Medication ?Instructions ?Recorded furosemide 20 mg tablet (Lasix) 20 mg PO DAILY #10 tabs 05/05/23 potassium gluconate 500 mg (83 mg) 500 mg PO DAILY #10 tabs 05/05/23 tablet Allergies Allergy/AdvReac Type Severity Reaction Status Date / Time Penicillins [PCN] Allergy Mild RASH Verified 03/06/24 15:23 Sulfa (Sulfonamide Allergy Mild RASH Verified 03/06/24 15:23 Antibiotics) [SULFA (SULFONAMIDE ANTIBIOTICS)] codeine [CODEINE] AdvReac Mild NAUSEA & Verified 03/06/24 15:23 VOMITING Review of Systems Review of Systems: Yes all other systems are reviewed and are negative [facility] Past Medical History Attestation statement: The following information was validated with the patient. Source: old records reviewed Social History Social History Advance Directives: No Advance Directives Information Provided: No Physical Exam ED Vital Signs: Vital Signs - 24 hr 03/06/24 15:21 Temperature 98.6 F Pulse Rate 68 Respiratory Rate 18 Blood Pressure 167/61 H Pulse Oximetry 98 Oxygen Delivery Method Room Air BMI result Body Mass Index 24.4 Appearance: Alert.?Oriented to person, place and time. No acute distress.?Normal affect. Head: Normocephalic Eyes: Pupils equal, round and reactive to light. EOMI. No nystagmus ENT: nares patent bilaterally. External auditory canal normal tympanic membrane pearly lambert and intact bilaterally. Moist mucous membranes. Neck: Normal inspection.? Neck supple.??No palpable tenderness, step-off, deformities. CVS: Heart sounds normal. Normal heart rate and rhythm.? Pulses normal.?? Respiratory: No respiratory distress.? Lung sounds clear to auscultation bilaterally?? Abdomen: Soft and non-tender. Normoactive bowel sounds. ?? Skin: Skin warm and dry.? Normal skin color.? ? Extremities: No lower extremity edema.? Neuro: No focal neurological deficit observed, CN II-XII intact, normal sensory observed, normal coordination observed. Level of consciousness: Appropriate for age. Motor strength:right upper extremity 5 /5, left upper extremity 5 /5, right lower extremity 5 /5, left lower extremity 5 /5.?Speech: Normal, Gait: Normal, Wkigip-id-cmkz test: Normal, Wppq-sj-bjcz test: Normal. Course Reevaluation(s) Reevaluation #1: CT of the head without evidence of acute intracranial pathology. Remains well-appearing, no focal neurological deficits ambulatory with a steady gait. Headache has resolved after taking Tylenol prior to arrival. At this time feel that she is stable for discharge, outpatient follow-up with primary care doctor. Discussed worrisome signs and symptoms that would warrant re-evaluation emergency department. All questions answered. Medical Decision Making Medical Decision Making MDM Narrative: Patient is an 83-year-old female with past medical history of hypertension, prior medical records at this hospital indicate that she has a history of COPD on 3 L via nasal cannula chronically though she is not wearing oxygen today and denies ever wearing oxygen (additionally not hypoxic on room air) who presents emergency department for evaluation of a headache described as ?head cold? as per HPI with staff concern at her independent living facility for elevated blood pressure reading in conjunction with this. Overall she is well-appearing, nontoxic, afebrile. Her blood pressure is elevated but does not meet criteria for hypertensive crisis, she is without tachycardia. She has no focal neurological deficits on examination. Although she states this is ?a head cold? she has no associated URI symptoms to attribute to this. Denies having any past history of chronic headache/migraine. Given concern for new onset headache and her HCT of the head to be obtained to exclude ICH, SDH, intracranial mass. She has no nuchal rigidity to suggest meningitis. Atraumatic I have a low suspicion for any acute skull fracture. Differential Diagnosis Differential Diagnoses: The differential diagnosis associated with the presentation includes (SDH, SAH, ICH, [employer] mass, meningitis, encephalitis, CVA, GCA, migraine, headache) Differential diagnosis with presentation includes SDH, SAH, ICH, [employer] mass, meningitis, encephalitis, CVA, GCA, migraine, headache. History without concerning exposures, not exacerbated or worsened by exertion, no red flag symptoms, vision changes, no new nimmunocompromising conditions, no focal neurological abnormalities. Admission/Observation Consideration of admission/observation: Escalation of care including admission/observation considered Lab Data MDM Lab Attestation statement: I reviewed the patient's lab results. CBC is without leukocytosis or anemia, has a mild thrombocytopenia. CMP is overall unremarkable. 03/06/24 15:45 03/06/24 15:45 Labs: Lab Results 03/06/24 Range/Units 15:45 WBC 8.3 (4.8-10.8) X10*3/uL RBC 4.09 L (4.20-5.50) X10*6/uL Hgb 12.5 (12.0-16.0) g/dl Hct 37.3 (37.0-47.0) % MCV 91.2 (80.0-98.0) fL MCH 30.6 (27.0-33.0) pg MCHC 33.5 (31.0-35.0) g/dl RDW 13.1 (11.0-16.0) % Plt Count 136 L (160-400) X10*3/uL MPV 9.9 (9.4-12.3) fL Immature Gran % (Auto) 0.5 H (0.0-0.4) % Neut % (Auto) 63.3 (45-73) % Lymph % (Auto) 26.6 (20-40) % [place] % (Auto) 8.2 (2-11) % Eos % (Auto) 0.8 (0-4) % Baso % (Auto) 0.6 (0-2) % Lymph # (Auto) 2.2 (1.2-4.9) X10*3/uL [place] # (Auto) 0.7 (0.1-1.2) X10*3/uL Eos # (Auto) 0.1 (0.0-0.4) X10*3/uL Baso # (Auto) 0.1 (0.0-0.2) X10*3/uL Abs Immat Gran (auto) 0.04 H (0.00-0.03) X10*3/uL Absolute Neuts (auto) 5.2 (2.0-8.3) x10*3/uL Absolute Nucleated RBC 0.000 (0.0-0.012) X10*3/uL Nucleated RBC % (auto) 0.0 (0.0-0.2) /100WBC Sodium 144 (135-145) mmol/L Potassium 3.4 (3.3-5.1) mmol/L Chloride 102 (96-108) mmol/L Carbon Dioxide 31 H (22-29) mmol/L Anion Gap 14 (12-20) BUN 19 H (9-16) mg/dL Creatinine 1.12 (0.5-1.4) mg/dL Estim Creat Clear Calc 35.4 Estimated GFR 47 Random Glucose 105 (60-115) mg/dL Calcium 9.7 (8.4-10.2) mg/dL Total Bilirubin 0.9 (0.0-1.0) mg/dL AST 28 (5-31) U/L ALT 12 (0-31) U/L Alkaline Phosphatase 67 (39-117) U/L Total Protein 7.2 (6.5-8.0) g/dL Albumin 4.1 (3.5-5.0) g/dL Influenza Type A (PCR) NEGATIVE (Negative) Influenza Type B (PCR) NEGATIVE (Negative) RSV RNA Qual (PCR) NEGATIVE (Negative) SARS-CoV-2 RNA (RT-PCR) NEGATIVE (Negative) Independent Interpretation I performed an independent interpretation of an: EKG and CT Scan (No ICH or intracranial mass) Interpretation: EKG revealing normal sinus rhythm with ventricular rate of 63, QTC 493, no ST elevation, no ST depression. Radiology Impression Discussion of test interpretation with radiology: I have reviewed the radiologist's reading. Radiologist Impression: CT/CT head/brain wo IV con IMPRESSION: No acute intracranial abnormality Independent Historian Clinical information obtained from an independent historian. History obtained from or confirmed by: EMS and Other (Brother) External Record Review External record reviewed: Outpatient record Tests considered The following testing was considered but not selected: See narrative above Prescription Management I considered prescription management with: Pain Medication Discharge Plan Discharge Clinical Impression: Headache Patient Disposition: Home, Self-Care Instructions: Acute Headache (ED) Additional Instructions: You can take Tylenol 500 mg, 2 tablets (1,000mg) every 4-6 hours as needed for pain, but not to exceed 3 doses daily (3,000mg).? Continue taking all your medications as prescribed by your doctor. Your blood work today was very reassuring. Testing for COVID, flu, and RSV were negative. CT scan of your brain did not reveal any abnormal findings which is very reassuring. Please be sure to rest over the next few days, be sure that you are drinking plenty of fluids and eating small frequent meals throughout the day. Follow-up with your primary care doctor within 3 days. Return to emergency department any new or worsening symptoms or concerns. Prescriptions: No Action furosemide [Lasix] 20 mg tablet 20 mg PO DAILY Qty: 10 0RF potassium gluconate 500 mg (83 mg) tablet 500 mg PO DAILY Qty: 10 0RF Referrals: Keke Nguyen MD [Primary Care Provider] - Print Language: Frisian
[2024-03-06 16:10] LABS: Anion Gap 14 (12-20)
[2024-03-06 16:12] LABS: Alanine Aminotransferase 12 U/L (0-31); Albumin Level 4.1 g/dL (3.5-5.0); Alkaline Phosphatase 67 U/L (39-117); Aspartate Amino Transferase 28 U/L (5-31); Bilirubin Total 0.9 mg/dL (0.0-1.0); Blood Urea Nitrogen 19 mg/dL (9-16); Carbon Dioxide 31 mmol/L (22-29); Chloride 102 mmol/L (96-108); Creatinine Clr Calc Pharmacy 35.4; Estimated Glomerular Filt Rate 47; Glucose Random 105 mg/dL (60-115); Potassium 3.4 mmol/L (3.3-5.1); Sodium 144 mmol/L (135-145); Total Protein 7.2 g/dL (6.5-8.0)
[2024-03-06 16:21] LABS: Calcium 9.7 mg/dL (8.4-10.2)
[2024-03-06 16:29] LABS: Influenza A PCR NEGATIVE (Negative); Influenza B PCR NEGATIVE (Negative); Resp Syncy Virus RNA Qual PCR NEGATIVE (Negative); SARS COV2 PCR INHOUSE NEGATIVE (Negative)
[2024-03-06 17:20] VITALS: BP 159/43; PULSE 61; RESP 18; TEMP 36.9; O2SAT 99
== END 2024-03-06 17:28 | disposition home or self-care (01) ==
PROVIDERS: Emergency Provider Emergency Medicine; PCP Internal Medicine
DX: R51.9 Headache, unspecified (principal); I10 Essential (primary) hypertension; J44.9 Chronic obstructive pulmonary disease, unspecified; Z03.818 Encounter for observation for suspected exposure to other biological agents ruled out
CPT/HCPCS: 0241U; 36415; 70450; 80053; 85025; 93005; 99283; 99284

== ENCOUNTER → 2024-03-06 15:32 | Outpatient (BNV) | payer MEDICARE, SELFPAY | PROVIDERS: Emergency Provider Emergency Medicine; PCP Internal Medicine; Visit Provider Internal Medicine | DX: R94.31 Abnormal electrocardiogram [ECG] [EKG] (principal) | CPT/HCPCS: 93010 ==

== ENCOUNTER 2024-06-05 18:46 | Emergency (ER) | payer MEDICARE, SELFPAY ==
--- NOTE | ~2024-06-05 | XR_ITS ---
CLINICAL HISTORY: cough 1 view chest x-ray. Comparison: CR/SR - XR CHEST 1V - 05/05/23 17:04 EST Findings: The lungs appear clear. There is no consolidation, effusion, or pneumothorax. Cardiomediastinal silhouette is within normal limits. Patient is status post transcatheter aortic valve replacement. There is a left-sided pacemaker with leads in the right atrium and right ventricle. IMPRESSION: No acute cardiopulmonary abnormality. This document has been electronically signed by: Chad Leal MD on 06/06/2024 00:34:39
--- NOTE | ~2024-06-05 | CT_ITS ---
CLINICAL HISTORY: ?posterior circulation cva CT head without contrast Comparison: CT/SC/SR - CT HEAD/BRAIN WO IV CON - 03/06/24 16:19 EDT Findings: There is no acute intracranial hemorrhage. Ventricles are within normal limits in size. No mass effect or midline shift is present. The lambert-white matter differentiation appears normal. There is mild generalized cerebral atrophy. Few small areas of mild hypodensity in the deep cerebral white matter are stable and consistent with chronic small vessel ischemic disease. The visualized portions of the orbits, paranasal sinuses, and mastoids are unremarkable. No fractures are identified. IMPRESSION: No acute intracranial abnormality. CT angiography head with contrast. CT angiography neck with contrast. 3-D postprocessing Comparison: CT/SC/SR - CT HEAD/BRAIN WO IV CON - 03/06/24 16:19 EDT Findings: Neck: There is calcified plaque throughout the visualized thoracic aorta. There is calcified plaque in the right brachiocephalic artery causing no significant stenosis. There is calcified and noncalcified plaque in the common carotid arteries causing no significant stenosis. There is predominantly noncalcified plaque in the proximal right internal carotid artery causing no significant stenosis. There is predominantly calcified plaque in the proximal left internal carotid artery causing no significant stenosis. There is calcified plaque in the cavernous segments of the internal carotid arteries causing no stenosis. The vertebral arteries are codominant. The origins of both vertebral arteries are poorly visualized due to motion artifact. There is possibly some degree of stenosis of the origin of the left vertebral artery, but poorly visualized. The left vertebral artery is patent without stenosis. There is calcified plaque in the V4 segment of the right vertebral artery probably causing moderate stenosis. Head: The basilar artery is patent without stenosis. The anterior, middle, and posterior cerebral arteries are patent without stenosis. There is no aneurysm. There is no dural venous sinus thrombosis. IMPRESSION: 1. Origins of the vertebral arteries are poorly visualized due to motion artifact. There is possibly some degree of stenosis of the origin of the left vertebral artery. 2. 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 3. Multifocal common and internal carotid artery plaque without significant stenosis. This document has been electronically signed by: Chad Leal MD on 06/05/2024 23:15:35
--- NOTE | ~2024-06-05 | XR_ITS ---
CLINICAL HISTORY: fall, pain 4 view left knee Comparison: None Findings: Bones intact. No dislocations. Components of the knee prosthesis are intact and well aligned. No significant loss of joint space, osteophytes, or erosions. No joint effusion. No other radiopaque foreign body. IMPRESSION: 1. No acute findings. This document has been electronically signed by: Jacky Silva MD on 06/05/2024 19:59:54
[2024-06-05 18:55] VITALS: BP 160/59; PULSE 83; RESP 16; TEMP 37.2; O2SAT 98; BMI 24.9
--- NOTE | 2024-06-05 19:36 | ECG_ITS ---
Test Reason : DIZZINESS Blood Pressure : */* mmHG Vent. Rate : 78 BPM Atrial Rate : 78 BPM P-R Int : 172 ms QRS Dur : 80 ms QT Int : 380 ms P-R-T Axes : 76 -45 72 degrees QTcB Int : 433 ms Normal sinus rhythm Left anterior fascicular block Septal infarct , age undetermined Abnormal ECG When compared with ECG of 06-Mar-2024 15:32, Nonspecific T wave abnormality now evident in Lateral leads QT has shortened Referred By: Wilma Patel Electronically Signed By: SULMA RACHEL
--- OUTSIDE RECORDS SUMMARY | 2024-06-05 19:48 | XMS_ITS | Clinical Summary ---
Author Organization [employer] Address [address] [facility] [address] [place] [address] Care Team Providers Care Building Associate Name Role Phone Unavailable Primary Care Provider Unavailabl e Immunizations Name Administration Dates Next Due Pfizer Covid-19 Vaccine 12+ 02/21/2023 Social History Tobacco Use Types Packs/Day Years Used Date Smoking Tobacco: Never Assessed Comments Unknown Sex and Gender Information Value Date Recorded Sex Assigned at Female 02/21/2023 12:37 PM EDT Legal Sex Female 12:35 PM EDT Gender Identity Female 02/21/2023 12:37 PM EDT Sexual Orientation Straight 02/21/2023 12 :37 PM EDT Plan of Treatment Health Maintenance Due Date Last Done Comments Depression Screening 1940 SDOH Screening 1940 Alcohol/Substance Use Screening 1954 Tobacco Screening 1954 DTaP/Tdap/Td Vaccines (1 - Tdap) 1961 Zoster Vaccines (1 of 2) 1992 Pneumococcal Vaccine: 50+ Ye ars (1 of 1 - PCV) 07/26/2007 RSV Patients and Pa tients Aged 60 years or older (1 - 1-dose 75+ series) 2017 COVID-19 Vaccine (2 - 2023-2 5 season) 2024 02/21/2023 Influenza Vaccine (#1) 2024 HIB Vaccines Aged Out No longer eligi ble based on patient's age to complete this topic HPV Vaccines Aged Out No longer eligi ble based on patient's age to complete this topic Hepatitis A Vaccines Aged Out No long er eligible based on patient's age to complete this topic Hepatitis B Vaccines Aged Out No long er eligible based on patient's age to complete this topic IPV Vaccines Aged Out No longer eligi ble based on patient's age to complete this topic Meningococcal Vaccine Aged Out No ivan kevin eligible based on patient's age to complete this topic RSV under 20 months Aged Out No longe r eligible based on patient's age to complete this topic Rotavirus Vaccines Aged Out No longer eligible based on patient's age to complete this topic Insurance [facility]
[2024-06-05 20:10] VITALS: BP 185/72; PULSE 87; RESP 16; TEMP 36.9; O2SAT 100
[2024-06-05 20:17] LABS: MANUAL DIFF FLAG NO
--- NOTE | 2024-06-05 20:21 | MHC.EDTECH ---
Patient BIBA,changed into hospital attire,vitals taken,BP is elevated RN aware,pt placed on the career development engineer,EKG taken per order,signed by provider,labs drawn and sent to lab,brother at bedside,call sharif in reach
[2024-06-05 20:29] LABS: Eosinophils Percent Auto 0.4 % (0-4); Mean Platelet Volume 9.8 fL (9.4-12.3); PLT CLUMP 1; SCAN SMEAR FLAG 1
[2024-06-05 20:31] LABS: Basophils Percent Auto 0.5 % (0-2); Hemoglobin 13.4 g/dl (12.0-16.0); Imm Gran Abs Auto 0.03 X10*3/uL (0.00-0.03); Imm Gran Pct Auto 0.4 % (0.0-0.4); Lymphocytes Absolute Auto 1.1 X10*3/uL (1.2-4.9); Lymphocytes Percent Auto 14.2 % (20-40); Mean Corpuscular HGB Conc 32.7 g/dl (31.0-35.0); Mean Corpuscular Hemoglobin 29.5 pg (27.0-33.0); Mean Corpuscular Volume 90.3 fL (80.0-98.0); Monocytes Absolute Auto 0.7 X10*3/uL (0.1-1.2); Monocytes Percent Auto 9.9 % (2-11); Neutrophils Absolute Auto 5.5 x10*3/uL (2.0-8.3); Neutrophils Percent Auto 74.6 % (45-73); Red Blood Count 4.54 X10*6/uL (4.20-5.50); Red Cell Distribution Width 12.7 % (11.0-16.0)
[2024-06-05 20:32] LABS: Alanine Aminotransferase 11 U/L (0-31); Albumin Level 4.2 g/dL (3.5-5.0); Alkaline Phosphatase 67 U/L (39-117); Anion Gap 13 (12-20); Aspartate Amino Transferase 29 U/L (5-31); Bilirubin Direct 0.4 mg/dL (0.0-0.5); Bilirubin Total 1.5 mg/dL (0.0-1.0); Blood Urea Nitrogen 12 mg/dL (9-16); Calcium 9.5 mg/dL (8.4-10.2); Carbon Dioxide 28 mmol/L (22-29); Chloride 102 mmol/L (96-108); Creatinine Clr Calc Pharmacy 48.5; Estimated Glomerular Filt Rate > 60; Glucose Random 88 mg/dL (60-115); Magnesium 1.9 mg/dL (1.6-2.6); Potassium 3.9 mmol/L (3.3-5.1); Sodium 139 mmol/L (135-145); Total Protein 7.6 g/dL (6.5-8.0)
--- NOTE | 2024-06-05 20:37 | MHC.EDTECH ---
Patient got up to commode w/1 assist,pt has a steady gait,pt urinated 200MLS of yellow urine,sample collected and sent to lab.
[2024-06-05 20:38] LABS: Platelet Count 113 X10*3/uL (160-400); Troponin-I High Sensitivity 8.2 ng/L (<3.5-17.0); White Blood Count 7.4 X10*3/uL (4.8-10.8)
[2024-06-05 20:44] LABS: Appearance Urine Clear; Color Urine Yellow; Glucose Urine UA Negative (Negative); Leukocyte Esterase Urine Trace (Negative); Nitrite Urine Negative (Negative); Specific Gravity - Urine 1.015 (1.005-1.025); UMIC TRIGGER UACC YES; Urine Blood Negative (Negative); Urine Ketones Negative (Negative); Urine Protein Negative (Neg-Trace)
[2024-06-05 21:02] LABS: Bacteria Urine None Seen (None Seen); Hyaline Casts Urine 0-2 /LPF (0-2); RBC Urine 0-2 /HPF (0-2); Squamous Epithelial Cell Urine 0-2 /HPF (0-2); WBC Urine 0-5 /HPF (0-5)
--- NOTE | 2024-06-05 21:11 | ED_ITS ---
HPI - Fall General Chief Complaint: Fall Stated Complaint: dizziness hx this morning Time Seen by Provider: 06/05/24 21:11 Source: patient and EMS History of Present Illness ED Provider: HPI Narrative: Patient from [employer] comes here as at 11:00 she slipped off the bed onto the floor hitting her right knee onto a chair patient's walks with a walker and supposed to get up holding the walker which was not there next to her bed. patient does have history of hypertension and COPD oxygen-dependent on 3 L of oxygen no head injury no loss of consciousness no chest pain patient feels normal otherwise patient has been feeling dizzy for last few days off balance patient is complaining of increased cough for last 3- 4 days got worse in last 24 hours Related Data Previous Rx's ?Medication ?Instructions ?Recorded furosemide 20 mg tablet (Lasix) 20 mg PO DAILY #10 tabs 05/05/23 potassium gluconate 500 mg (83 mg) 500 mg PO DAILY #10 tabs 05/05/23 tablet Allergies Allergy/AdvReac Type Severity Reaction Status Date / Time Penicillins [PCN] Allergy Mild RASH Verified 06/05/24 19:03 Sulfa (Sulfonamide Allergy Mild RASH Verified 06/05/24 19:03 Antibiotics) [SULFA (SULFONAMIDE ANTIBIOTICS)] codeine [CODEINE] AdvReac Mild NAUSEA & Verified 06/05/24 19:03 VOMITING Review of Systems 2 Review of Systems: Yes all other systems are reviewed and are negative PMFSH Past Medical History Medical History Chronic hypoxemic respiratory failure COPD (chronic obstructive pulmonary disease) Hypertension Social History Social History Smoked in Last 30 Days: No Use of substances other than those prescribed or required for medical reasons: No Advance Directives: Yes Advance Directives on File: Yes Advance Directives Date on File: 03/07/24 Do you have a plan to hurt others: No Plan Physical Exam 2 Vital Signs: Vital Signs: Last Vital Signs Temp 98.1 F 06/06/24 03:20 Pulse 76 06/06/24 03:20 Resp 16 06/06/24 03:20 BP 159/56 H 06/06/24 03:20 Pulse Ox 99 06/06/24 03:20 O2 Del Method Room Air 06/06/24 03:20 BMI result Body Mass Index 24.9 Appearance: Alert. Oriented X3. No acute distress. Eyes: PERRLA, No Nystagmus ENT: Pharynx normal. Oral Mucosa moist Neck: Normal inspection. Neck supple. CVS: Normal heart rate and rhythm. Pulses normal. Respiratory: No respiratory distress. Equal air entry bilateral, no wheezing/rales/rhonchi Abdomen: Soft and nontender. Bowel sounds are present, no mass palpable, no CVA tenderness Skin: Skin warm and dry. Normal skin color. Normal skin turgor. Extremities: No lower extremity edema. No calf tenderness Neuro: Oriented X 3. No motor deficit. No sensory deficit.No cerebellar signs , cranial nerves II-XII intact Medications Administered Discontinued Medications Generic Name Dose Route Start Last Admin Trade Name Freq PRN Reason Stop Dose Admin Iohexol 65 ml 06/05/24 22:34 06/05/24 22:34 Iohexol 350 Mg/Ml 100 Ml Infus..Btl IV 06/05/24 22:35 65 ml ONCE ONE Administration Medical Decision Making Medical Decision Making [facility] Narrative: Patient's status post mechanical fall no significant injuries vitals stable will ambulate patient in the ER and orthostatic 955pm No orthostatics noticed patient is very unsteady on her feet will do CTA head and neck rule out posterior circulation CVA CTA negative for acute patient lab workup showed influenza A likely the cause of increased weakness will get PT evaluation and case management for rehab placement Differential Diagnosis Differential Diagnoses: The differential diagnosis associated with the presentation includes Weakness/metabolic encephalopathy/viral syndrome/CVA Admission/Observation Consideration of admission/observation: Escalation of care including admission/observation considered Lab Data [facility] Lab Attestation statement: I reviewed the patient's lab results. 06/05/24 20:07 06/05/24 20:07 Labs: Lab Results 06/05/24 06/05/24 06/05/24 Range/Units 20:07 20:36 23:50 WBC 7.4 (4.8-10.8) X10*3/uL RBC 4.54 (4.20-5.50) X10*6/uL Hgb 13.4 (12.0-16.0) g/dl Hct 41.0 (37.0-47.0) % MCV 90.3 (80.0-98.0) fL MCH 29.5 (27.0-33.0) pg MCHC 32.7 (31.0-35.0) g/dl RDW 12.7 (11.0-16.0) % Plt Count 113 L (160-400) X10*3/uL MPV 9.8 (9.4-12.3) fL Immature Gran % (Auto) 0.4 (0.0-0.4) % Neut % (Auto) 74.6 H (45-73) % Lymph % (Auto) 14.2 L (20-40) % [place] % (Auto) 9.9 (2-11) % Eos % (Auto) 0.4 (0-4) % Baso % (Auto) 0.5 (0-2) % Lymph # (Auto) 1.1 L (1.2-4.9) X10*3/uL [place] # (Auto) 0.7 (0.1-1.2) X10*3/uL Eos # (Auto) 0.0 (0.0-0.4) X10*3/uL Baso # (Auto) 0.0 (0.0-0.2) X10*3/uL Abs Immat Gran (auto) 0.03 (0.00-0.03) X10*3/uL Absolute Neuts (auto) 5.5 (2.0-8.3) x10*3/uL Absolute Nucleated RBC 0.000 (0.0-0.012) X10*3/uL Nucleated RBC % (auto) 0.0 (0.0-0.2) /100WBC Sodium 139 (135-145) mmol/L Potassium 3.9 (3.3-5.1) mmol/L Chloride 102 (96-108) mmol/L Carbon Dioxide 28 (22-29) mmol/L Anion Gap 13 (12-20) BUN 12 (9-16) mg/dL Creatinine 0.85 (0.5-1.4) mg/dL Estim Creat Clear Calc 48.5 Estimated GFR > 60 Random Glucose 88 (60-115) mg/dL Calcium 9.5 (8.4-10.2) mg/dL Magnesium 1.9 (1.6-2.6) mg/dL Total Bilirubin 1.5 H (0.0-1.0) mg/dL Direct Bilirubin 0.4 (0.0-0.5) mg/dL AST 29 (5-31) U/L ALT 11 (0-31) U/L Alkaline Phosphatase 67 (39-117) U/L Troponin I High Sens 8.2 D (<3.5-17.0) ng/L Total Protein 7.6 (6.5-8.0) g/dL Albumin 4.2 (3.5-5.0) g/dL Urine Color Yellow Urine Appearance Clear Urine pH 8.0 (5.0-9.0) Ur Specific [place] 1.015 (1.005-1.025) Urine Protein Negative (Neg-Trace) mg/dL Urine Glucose (UA) Negative (Negative) mg/dL Urine Ketones Negative (Negative) mg/dL Urine Blood Negative (Negative) Urine Nitrite Negative (Negative) Ur Leukocyte Esterase Trace H (Negative) Urine RBC 0-2 (0-2) /HPF Urine WBC 0-5 (0-5) /HPF Ur Squamous Epith Cells 0-2 (0-2) /HPF Urine Bacteria None Seen (None Seen) Hyaline Casts 0-2 (0-2) /LPF Influenza Type A (PCR) POSITIVE A (Negative) Influenza Type B (PCR) NEGATIVE (Negative) RSV RNA Qual (PCR) NEGATIVE (Negative) SARS-CoV-2 RNA (RT-PCR) NEGATIVE (Negative) Independent Interpretation I performed an independent interpretation of an: Plain X-Ray Interpretation: [place] [id number] XRay Report Signed Patient: Tiffany Mcmillan MR#: [id number] : 1940 Acct:[id number] Age/Sex: 83 / F ADM Date: 06/05/24 Loc: HO.ED Attending Dr: Ordering Physician: Steve Stinson MD Date of Service: 06/05/24 Procedure(s): XR chest 1V Accession Number(s): [id number] cc: Physician,None ; Steve Stinson MD~ CLINICAL HISTORY: cough 1 view chest x-ray. Comparison: CR/SR - XR CHEST 1V - 05/05/23 17:04 EST Findings: The lungs appear clear. There is no consolidation, effusion, or pneumothorax. Cardiomediastinal silhouette is within normal limits. Patient is status post transcatheter aortic valve replacement. There is a left-sided pacemaker with leads in the right atrium and right ventricle. IMPRESSION: No acute cardiopulmonary abnormality. This document has been electronically signed by: Chad Leal MD on 06/06/2024 00:34:[address] [place] [id number] [address] Scan Report Signed Patient: Tiffany Mcmillan MR#: [id number] : 1940 Acct:[id number] Age/Sex: 83 / F ADM Date: 06/05/24 Loc: .ED Attending Dr: Ordering Physician: Steve Stinson MD Date of Service: 06/05/24 Procedure(s): CT angio head neck Accession Number(s): [id number] cc: Physician,None ; Steve Stinson MD~ Report Number: [id number]: Total DLP = 2050.00 mGy-cm CLINICAL HISTORY: ?posterior circulation cva CT head without contrast Comparison: CT/IA/SR - CT HEAD/BRAIN WO IV CON - 03/06/24 16:19 EDT Findings: There is no acute intracranial hemorrhage. Ventricles are within normal limits in size. No mass effect or midline shift is present. The lambert-white matter differentiation appears normal. There is mild generalized cerebral atrophy. Few small areas of mild hypodensity in the deep cerebral white matter are stable and consistent with chronic small vessel ischemic disease. The visualized portions of the orbits, paranasal sinuses, and mastoids are unremarkable. No fractures are identified. IMPRESSION: No acute intracranial abnormality. CT angiography head with contrast. CT angiography neck with contrast. 3-D postprocessing Comparison: CT/IA/SR - CT HEAD/BRAIN WO IV CON - 03/06/24 16:19 EDT Findings: Neck: There is calcified plaque throughout the visualized thoracic aorta. There is calcified plaque in the right brachiocephalic artery causing no significant stenosis. There is calcified and noncalcified plaque in the common carotid arteries causing no significant stenosis. There is predominantly noncalcified plaque in the proximal right internal carotid artery causing no significant stenosis. There is predominantly calcified plaque in the proximal left internal carotid artery causing no significant stenosis. There is calcified plaque in the cavernous segments of the internal carotid arteries causing no stenosis. The vertebral arteries are codominant. The origins of both vertebral arteries are poorly visualized due to motion artifact. There is possibly some degree of stenosis of the origin of the left vertebral artery, but poorly visualized. The left vertebral artery is patent without stenosis. There is calcified plaque in the V4 segment of the right vertebral artery probably causing moderate stenosis. Head: The basilar artery is patent without stenosis. The anterior, middle, and posterior cerebral arteries are patent without stenosis. There is no aneurysm. There is no dural venous sinus thrombosis. IMPRESSION: 1. Origins of the vertebral arteries are poorly visualized due to motion artifact. There is possibly some degree of stenosis of the origin of the left vertebral artery. 2. 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 3. Multifocal common and internal carotid artery plaque without significant stenosis. This document has been electronically signed by: Chad Leal MD on 06/05/2024 23:15:35 Dictated By: Chad Leal MD Signed By: <Electronically signed by Chad Leal MD in OV> 06/05/242315 DD/ 14 TD/TT: 06/05/242314 Night Auditor: Radiology Impression Discussion of test interpretation with radiology: I have reviewed the radiologist's reading. Radiologist Impression: Negative left knee x-ray Discharge Plan Discharge Clinical Impression: Weakness, Influenza A, Unsteady gait Patient Disposition: Still a Patient Prescriptions: No Action furosemide [Lasix] 20 mg tablet 20 mg PO DAILY Qty: 10 0RF potassium gluconate 500 mg (83 mg) tablet 500 mg PO DAILY Qty: 10 0RF Print Language: Kinyarwanda
[2024-06-05 21:40] VITALS: BP 167/72; PULSE 80
[2024-06-05 21:49] VITALS: BP 187/76; BP 198/81; PULSE 100; PULSE 87
[2024-06-05 21:50] VITALS: BP 187/76; PULSE 80; RESP 18; TEMP 37.1; O2SAT 100
--- NOTE | 2024-06-05 21:51 | MHC.EDTECH ---
Ortho static vitals completed,patient had a hard time with her balance,while sitting she was falling back,and while standing, pt has no dizziness,provider and RN aware
--- NOTE | 2024-06-05 22:05 | PC.NURSE ---
IV access obtained, pt awaiting CTA for unbalanced upon standing and intermittent dizziness, negative orthostatics, pt aware of plan of care.
[2024-06-05] MEDS: iohexoL 350 MG/ML 100 ML INFUS..BTL 65 ML IV (22:34)
[2024-06-05 23:45] VITALS: BP 169/63; PULSE 94; RESP 22; TEMP 37.1; O2SAT 99
--- NOTE | 2024-06-06 00:14 | PC.NURSE ---
Negative CTA, pt still unbalanced unable to be safely discharged at this time. Additional testing ordered, probable PT/CM. Pt aware of plan of care.
[2024-06-06 00:39] LABS: Influenza A PCR POSITIVE (Negative); Influenza B PCR NEGATIVE (Negative); Resp Syncy Virus RNA Qual PCR NEGATIVE (Negative); SARS COV2 PCR INHOUSE NEGATIVE (Negative)
--- NOTE | 2024-06-06 03:19 | PC.NURSE ---
Pt resting in bed eyes closed, skin pwd respirations even unlabored. Awaiting PT/CM in morning, will continue to monitor.
[2024-06-06 03:20] VITALS: BP 159/56; PULSE 76; RESP 16; TEMP 36.7; O2SAT 99
--- NOTE | 2024-06-06 04:28 | MHC.EDTECH ---
Patient got up to the commode w/a 1 assist ,patient urinated a large amount,ousmane-care given,pt was given a can of gm nilda per request,call sharif in reach
[2024-06-06] MEDS: Oseltamivir Phosphate 75 MG CAPSULE PO (08:34)
[2024-06-06 08:35] VITALS: BP 141/59; PULSE 74; RESP 22; TEMP 36.7; O2SAT 97
[2024-06-06 09:23] VITALS: BP 141/59; PULSE 74; O2SAT 97
--- NOTE | 2024-06-06 12:15 | MHC.CM.ED ---
Received case management overngiht> patient came to the ER d/t dizziness. Found to have Flu A. Physical therapy eval completed. Short term rehab is recommended. Met with patient in regards to discharge planning. Patient is an [place] resident of [facility]. Requesting referral to [facility] SNF. Referral made via [facility]. [facility] isn't contracted with patient's [employer] insurance. Katharina Jaguar is. [facility] is willing to request out of network auth because patient resides in their [place]. Patient agreeable. [facility] is in the process of trying to obtain insurance auth. Continue to monitor for d/c needs.
--- NOTE | 2024-06-06 13:57 | PHA.MEDREC ---
Pharmacy Consult ? Medication Reconciliation Pharmacy has completed the medication reconciliation verified med rec done by nursing.
[2024-06-06 14:34] VITALS: BP 148/55; PULSE 76; RESP 18; TEMP 37; O2SAT 97
[2024-06-06 16:27] VITALS: TEMP 39.2
[2024-06-06] MEDS: Acetaminophen 325 MG TABLET 650 MG PO (17:06)
[2024-06-06 20:57] VITALS: PULSE 78; RESP 18; TEMP 37.3; O2SAT 98
--- NOTE | 2024-06-06 22:23 | PC.NURSE ---
patient up to bedside commode with assist of 1.
[2024-06-07 05:10] VITALS: BP 149/65; PULSE 73; RESP 17; TEMP 36.4; O2SAT 95
[2024-06-07 08:14] VITALS: BP 170/72; PULSE 80; RESP 19; TEMP 36.7; O2SAT 93
--- NOTE | 2024-06-07 08:19 | PHA.MEDREC ---
Pharmacy Consult ? Medication Reconciliation RN has completed the medication reconciliation, [facility] reviewed. Patient had med list.
[2024-06-07] MEDS: Torsemide 20 MG TABLET 60 MG PO (08:39)
[2024-06-07] MEDS: Amiodarone HCL 200 MG TABLET 100 MG PO (08:40)
[2024-06-07] MEDS: amLODIPine Besylate 10 MG TABLET PO (08:40)
[2024-06-07] MEDS: Atorvastatin Calcium 40 MG TABLET PO (08:40)
[2024-06-07] MEDS: Potassium Chloride ER 10 MEQ TABLET.ER 20 MEQ PO (10:05)
[2024-06-07 10:32] VITALS: BP 170/72; PULSE 80; RESP 19; TEMP 36.7; O2SAT 93
== END 2024-06-07 10:42 | disposition skilled nursing facility (03) ==
PROVIDERS: Physician Assistant Medical; Emergency Provider Internal Medicine; PCP Internal Medicine
DX: J10.1 Influenza due to other identified influenza virus with other respiratory manifestations (principal); R53.1 Weakness; R26.81 Unsteadiness on feet; M25.561 Pain in right knee; R05.9 Cough, unspecified; R42 Dizziness and giddiness; Z91.81 History of falling; Z03.818 Encounter for observation for suspected exposure to other biological agents ruled out; I10 Essential (primary) hypertension; J44.9 Chronic obstructive pulmonary disease, unspecified; Z99.81 Dependence on supplemental oxygen; Z79.899 Other long term (current) drug therapy
CPT/HCPCS: 0241U; 36415; 70496; 70498; 71045; 73564; 80048; 80076; 81001; 83735; 84484; 85025; 93005; 97162; 99285; Q9967

== ENCOUNTER → 2024-06-05 19:36 | Outpatient (BNV) | payer MEDICARE, SELFPAY | PROVIDERS: Emergency Provider Internal Medicine; Visit Provider Internal Medicine | DX: R94.31 Abnormal electrocardiogram [ECG] [EKG] (principal) | CPT/HCPCS: 93010 ==

== ENCOUNTER → 2024-06-05 19:40 | Outpatient (BNV) | payer MEDICARE, SELFPAY | PROVIDERS: Visit Provider Specialist | DX: I65.01 Occlusion and stenosis of right vertebral artery (principal); R05.9 Cough, unspecified | CPT/HCPCS: 70496; 70498; 71045 ==